=== PATIENT | male | born 1965 | race Caucasian/White ===

== ENCOUNTER 2019-10-20 14:38 | Inpatient (IN) | payer MEDICAID, SELFPAY ==
[2019-10-20] VITALS (19 sets, daily range): BP systolic 114–161; BP diastolic 76–119; PULSE 70–106; RESP 17–29; TEMP 36.3–37.3; O2SAT 60–98; BMI 18.0
--- NOTE | ~2019-10-20 | XR_ITS ---
EXAMINATION: XR chest 2V 10/20/2019 15:35 INDICATION: Shortness of breath. Emphysema. PROCEDURE: 2 view chest COMPARISON: No prior studies for comparison. FINDINGS: The lungs are clear. The lungs are hyperinflated which is consistent with, but not diagnost ic of chronic obstructive pulmonary disease. There is scarring at the lung apices and left lower lobe . The cardiomediastinal silhouette is within normal limits. There are no pleural effusions. There i s no pneumothorax suspected. IMPRESSION: 1: NO ACUTE CARDIOPULMONARY DISEASE. Reviewed, dictated and finalized at location A. [facility] CONTACT SPECIALIST
--- NOTE | 2019-10-20 14:48 | ED.SOB ---
HPI - SOB/Dyspnea General Chief Complaint: Shortness of Breath/Dyspnea Stated Complaint: sob Time Seen by Provider: 10/20/19 14:48 Source: patient and RN notes reviewed Mode of arrival: ambulatory Limitations: no limitations History of Present Illness HPI Narrative: Pt is a 54 y/o male with a Hx of COPD, who presents to the ED with c/o severe SOB starting 3-4 days ago. He notes that he has had chronic intermittent SOB ever since being diagnosed with COPD roughly 5 years ago. Pt states that he has had increased SOB over the past 3-4 days. He notes that he can hardly get out of bed due to him becoming too short of breath. Pt reports rt upper chest pain accompanying his SOB as well as one episode of diarrhea earlier this morning, but denies any cough, fever, chills, or other symptoms. He notes that he uses an inhaler at home, and states that the inhaler slightly alleviates his symptoms. Pt notes that he has been trying to quit smoking, but states that he smoked 1 cigarette this morning. MD elicited complaint: shortness of breath Pertinent past history: COPD Onset (ago): day(s) (3-4) Timing: progressively worsening Severity: severe Exacerbating factors: exertion Relieving factors: other (inhaler) Known history of: COPD Associated symptoms: chest pain (rt upper chest pain) and other (diarrhea) Treatment prior to arrival: other (inhaler) Related Data Home Medications Medication Instructions Recorded Confirmed No Home Medications 10/20/19 10/20/19 Allergies Allergy/AdvReac Type Severity Reaction Status Date / Time No Known Allergies Allergy Mild Unverified 10/20/19 14:44 Review of Systems Review of Systems: All systems reviewed & are unremarkable except as noted in HPI and below Constitutional: Constitutional: Denies chills, Denies fever(s), Denies headache(s) and Denies weakness Cardiovascular: Cardiovascular: Reports chest pain (rt upper chest pain) Respiratory: Respiratory: Reports dyspnea Gastrointestinal: Gastrointestinal: Reports diarrhea Musculoskeletal: Musculoskeletal: Denies back pain and Denies neck pain Neurologic: Denies headache(s) and Denies weakness [facility] Past Medical History Medical History (Updated 10/20/19 @ 21:57 by Karla Bernard MD) COPD (chronic obstructive pulmonary disease) Surgical History Surgical History (Updated 10/20/19 @ 19:36 by Richard Conroy MD) H/O right wrist surgery No significant past surgical history Family History Family History Sibling Acute myocardial infarction Cerebrovascular accident Chronic obstructive pulmonary disease Diabetes mellitus Hypertension Sibling Asthma Cerebrovascular accident Chronic obstructive pulmonary disease Hypertension Sibling Chronic obstructive pulmonary disease Hypertension Sibling Chronic obstructive pulmonary disease Hypertension Sibling Chronic obstructive pulmonary disease Hypertension Mother Congestive heart failure Social History Social History Smoking packs per day: 1 Smoking cigarettes per day: 20.0 Years smoked: 40 Smoking pack-years: 40.00 Smoking status: Current every day smoker Tobacco type: cigarettes Alcohol intake: former Substance use: current Substance use type: marijuana Gender identity (if verbalized by the patient): Male Spiritual care concerns: No Agree to blood products: Yes Exam Const: General: well developed and in distress mild and respiratory Orientation/consciousness: oriented to person, oriented to place, oriented to time and patient oriented x3 HENMT: Head: normocephalic Resp: Effort & Inspection: respiratory distress (mild) and tachypneic Auscultation: clear to auscultation bilaterally and diminished lung sounds Cardio: Rate: tachycardic Rhythm: regular rhythm GI: GI Palp: No abdominal tenderness and Yes Soft to palpation Skin: General
--- NOTE | 2019-10-20 14:52 | ECG_ITS ---
Measurements Intervals [place] Rate: 106 P: 92 WA: 145 QRS: 116 QRSD: 86 T: 65 QT: 330 QTc: 440 Interpretive Statements SINUS TACHYCARDIA ARM LEADS REVERSED BASELINE ARTIFACT- I, II, III, AVR, AVL, AVF, V1-V6 ABNORMAL ECG Electronically Signed On 10-20-2019 18:36:42 INDUSTRIAL ELECTRICIAN by Ash Salcedo D.O.
--- NOTE | 2019-10-20 14:53 | PC.NURSE ---
Placed patient on oxygen 3 Li NC at this time.
[2019-10-20] MEDS: methylPREDNISolone SOD SUCC 125 MG VIAL IV PUSH (14:56)
[2019-10-20] MEDS: IPRATROPIUM BR 0.02% INH SOLN 0.5 MG/2.5 ML VIAL INHALATION ×2 (15:04→20:30)
[2019-10-20] MEDS: ALBUTEROL SULFATE NEB 2.5 MG/0.5 ML INH INHALATION (15:05)
[2019-10-20 15:08] LABS: Basophils Absolute Auto 0.1 K/mm3 (0.0-0.1); Basophils Percent Auto 1.2 % (0.2-1.2); Hematocrit 53.2 % (42.0-52.0); Hemoglobin 16.2 g/dL (14.0-18.0); Immature Granulocyte Absolute 0.02 K/mm3 (0.00-0.031); Immature Granulocyte Percent A 0.3 % (0-0.5); Lymphocytes Percent Auto 18.3 % (18.3-44.2); Mean Corpuscular HGB Conc 30.5 g/dl (32-36); Mean Corpuscular Volume 101.9 fl (80-100); Mean Platelet Volume 10.9 fl (7.4-10.4); Monocytes Absolute Auto 0.6 K/mm3 (0.1-0.6); Monocytes Percent Auto 9.7 % (2.6-8.5); Neutrophils Absolute Auto 4.2 K/mm3 (1.3-6.7); Neutrophils Percent Auto 70.5 % (45.5-73.1); Platelet Count Result 218 k/mm3 (150-375); Red Blood Count 5.22 M/mm3 (4.6-6.20); Red Cell Distribution Width 13.3 % (11.5-14.5)
[2019-10-20 15:20] LABS: Alanine Aminotransferase 49 U/L (4-50); Albumin Level 4.3 g/dL (3.5-5.1); Alkaline Phosphatase 78 U/L (38-126); Aspartate Amino Transferase 42 U/L (17-59); Bilirubin,Total 1.5 mg/dL (0.2-1.3); Blood Urea Nitrogen 15 mg/dL (9-20); Calcium 8.9 mg/dL (8.4-10.2); Carbon Dioxide > 40 mmol/L (22-30); Chloride 89 mmol/L (98-107); Estimated CRCL calculation 97 ml/min; Estimated Glomerular Filt Rate > 60; Glucose 135 mg/dL (75-110); Potassium 4.5 mmol/L (3.4-5.0); Sodium 137 mmol/L (137-145)
[2019-10-20 15:24] LABS: Base Excess ABG 11.9 mEq/l (+/-2.0); Carboxyhemoglobin 5.6 % THb (0-2.0); Fractional Inspired Oxygen 24 %; HCO3 ABG 43.2 mEq/l (22.0-26.0); Methemoglobin ABG 0.3 %THb (0-1.5); Oxygen Content ABG 20.3 %vol (16.0-22.0); Oxygen Saturation ABG 96.4 % (95.0-100.0); Oxyhemoglobin 91.1 % THb (90.0-100.0); PO2 ABG 97.8 mmHg (80.0-100.0); PO2 FiO2 Ratio Arterial Blood 4.08 %; Total Hemoglobin 15.8 g/dL (12.0-18.0); pH ABG 7.299 (7.350-7.450)
[2019-10-20 15:27] LABS: Device NASAL CANNULA; Modified Allen's Test Pass; Site Drawn RIGHT RADIAL
[2019-10-20 15:32] LABS: NT Pro B Type Natriuretic Pept 1120 PG/ML (5-100); Troponin I < 0.012 ng/mL (0.000-0.034)
--- NOTE | 2019-10-20 18:01 | PC.NURSE ---
This patient, Richard Simon, was admitted to IMU Room 212-01. Patient/family oriented to hospital policies and general routines including ID bracelet, bed and alarms, visiting hours, pain management, procedures, bathroom and other care routines, personal items, smoking policy, room service/diet, and visiting hours. Valuables list has been completed. Information on how to activate the Rapid Response Team has been discussed. Patient/Family are encouraged to report perceived risks to care and to ask questions if they do not understand what they are told or what they should do.
--- NOTE | 2019-10-20 19:32 | PM.IMHP ---
H&P: HPI History of Present Illness Chief complaint: acute respiratory failure/copd exacerbation Narrative: This is a pleasant 54-year-old male with known history of chronic COPD who is known to normally smoke about 2 packs of cigarettes daily for the past 40 years and who is from [facility] here visiting for work. The patient presented to the hospital [facility] with severe shortness of breath. Over the past 2 weeks the patient has had worsening exertional shortness of breath, wheezing, ongoing productive cough of yellowish sputum which has not changed recently, and generalized fatigue. He ran out of his inhalers about 2 weeks ago and has not been able to get them refilled. He is not on any home oxygen. 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 He noticed that he had severe shortness of breath with minimal exertion. The patient does not have any previous history of heart disease and denies any recent peripheral swelling. He does complain of right-sided chest discomfort which has been ongoing for many days now. He denies any recent fevers or chills, nausea or vomiting, abdominal pain, dysuria, hematuria, or rectal bleeding. He has had a few episodes of diarrhea recently. He denies any recent use of antibiotics. Denies any sick contacts. Patient was evaluated emergency room today and found to be in acute hypercapnic respiratory failure. Patient was promptly initiated on BiPAP and admitted to the hospital for further care. He denies any other symptoms at this time. Review of Systems Review of Systems: All systems reviewed & are unremarkable except as noted in HPI and below PMFSH Past Medical History Medical History (Updated 10/20/19 @ 21:57 by Karla Bernard MD) COPD (chronic obstructive pulmonary disease) Surgical History Surgical History (Updated 10/20/19 @ 19:36 by Richard Conroy MD) H/O right wrist surgery No significant past surgical history Family History Family History Sibling Acute myocardial infarction Cerebrovascular accident Chronic obstructive pulmonary disease Diabetes mellitus Hypertension Sibling Asthma Cerebrovascular accident Chronic obstructive pulmonary disease Hypertension Sibling Chronic obstructive pulmonary disease Hypertension Sibling Chronic obstructive pulmonary disease Hypertension Sibling Chronic obstructive pulmonary disease Hypertension Mother Congestive heart failure Social History Social History Smoking packs per day: 1 Smoking cigarettes per day: 20.0 Years smoked: 40 Smoking pack-years: 40.00 Smoking status: Current every day smoker Tobacco type: cigarettes Alcohol intake: former Substance use: current Substance use type: marijuana Gender identity (if verbalized by the patient): Male Spiritual care concerns: No Agree to blood products: Yes Meds Home Medications and Allergies Home Medications Medication Instructions Recorded Confirmed Type No Home Medications 10/20/19 10/20/19 History Allergies Allergy/AdvReac Type Severity Reaction Status Date / Time No Known Allergies Allergy Mild Unverified 10/20/19 14:44 Vital Signs Vital Signs - 24 hr 10/20/19 14:45 10/20/19 14:48 10/20/19 15:02 Temperature 37.3 C Pulse Rate 106 H 105 H 85 Respiratory Rate 25 H 17 Blood Pressure 155/111 H 161/96 H Pulse Oximetry 60 L 90 10/20/19 15:05 10/20/19 15:30 10/20/19 15:43 Temperature Pulse Rate 88 80 77 Respiratory Rate 20 18 18 Blood Pressure 140/119 H Pulse Oximetry 95 10/20/19 16:10 10/20/19 16:31 10/20/19 17:10 Temperature Pulse Rate 84 78 82 Respiratory Rate 25 H 18 28 H Blood Pressure 138/98 H 131/88 Pulse Oximetry 94 94 93 10/20/19 17:42 Temperature 36.9 C Pulse Rate 84 Respiratory Rate 19 Blood Pressure 156/91 H Pulse Oximetry 98 Exam Const: Genera
[2019-10-20 19:37] LABS: Troponin I 0.012 ng/mL (0.000-0.034)
[2019-10-20] MEDS: ALBUTEROL SULFATE NEB 2.5 MG/0.5 ML INH 5 MG INHALATION (20:30)
[2019-10-20] MEDS: SODIUM CHLORIDE 0.9% IV 1,000 ML 100 ML IV CONT (20:39)
[2019-10-20 20:58] LABS: Alveolar/Arterial O2 Gradient 138.9 mmHg; Base Excess ABG 0.6 mEq/l (+/-2.0); Fractional Inspired Oxygen 40 %; HCO3 ABG 26.7 mEq/l (22.0-26.0); Oxygen Content ABG 15.9 %vol (16.0-22.0); Oxygen Saturation ABG 96.5 % (95.0-100.0); Oxyhemoglobin 93.6 % THb (90.0-100.0); PO2 FiO2 Ratio Arterial Blood 2.25 %; pH ABG 7.354 (7.350-7.450)
[2019-10-20 20:59] LABS: Device NON-INVASIVE VENT; Modified Allen's Test Pass; Site Drawn RIGHT RADIAL
[2019-10-20 21:00] LABS: Non-Invasive Expiratory Pressure 7 CMH2O; Non-Invasive Inspiratory Pressure 14 CMH2O; Non-Invasive Vent Rate 10 /MIN
[2019-10-20 22:34] LABS: Troponin I < 0.012 ng/mL (0.000-0.034)
[2019-10-20] MEDS: methylPREDNISolone SOD SUCC 125 MG VIAL 60 MG IV PUSH (23:36)
[2019-10-21] VITALS (17 sets, daily range): BP systolic 111–150; BP diastolic 73–92; PULSE 69–96; RESP 17–20; TEMP 36.1–37; O2SAT 91–96
[2019-10-21] MEDS: NICOTINE (*PBKC) 21 MG PATCH 1 PATCH TRANSDERM ×2 (00:03→09:04)
[2019-10-21] MEDS: IPRATROPIUM BR 0.02% INH SOLN 0.5 MG/2.5 ML VIAL INHALATION ×4 (01:41→20:33)
[2019-10-21] MEDS: ALBUTEROL SULFATE NEB 2.5 MG/0.5 ML INH 5 MG INHALATION ×4 (01:41→20:33)
[2019-10-21 04:39] LABS: Hematocrit 47.6 % (42.0-52.0); Hemoglobin 14.6 g/dL (14.0-18.0); Immature Granulocyte Absolute 0.02 K/mm3 (0.00-0.031); Immature Granulocyte Percent A 0.5 % (0-0.5); Lymphocytes Absolute Auto 0.28 K/mm3 (0.9-3.2); Lymphocytes Percent Auto 6.7 % (18.3-44.2); Mean Corpuscular HGB Conc 30.7 g/dl (32-36); Mean Corpuscular Hemoglobin 30.5 pg (26-34); Mean Corpuscular Volume 99.4 fl (80-100); Neutrophils Absolute Auto 3.8 K/mm3 (1.3-6.7); Neutrophils Percent Auto 91.8 % (45.5-73.1); Platelet Count Result 199 k/mm3 (150-375); Red Blood Count 4.79 M/mm3 (4.6-6.20); Red Cell Distribution Width 13.1 % (11.5-14.5); White Blood Count 4.2 K/mm3 (4.5-10.0)
[2019-10-21 04:59] LABS: Blood Urea Nitrogen 14 mg/dL (9-20); Calcium 8.7 mg/dL (8.4-10.2); Carbon Dioxide 38 mmol/L (22-30); Chloride 93 mmol/L (98-107); Estimated CRCL calculation 111 ml/min; Estimated Glomerular Filt Rate > 60; Glucose 138 mg/dL (75-110); Magnesium 1.8 mg/dL (1.6-2.3); Potassium 4.6 mmol/L (3.4-5.0); Sodium 137 mmol/L (137-145)
[2019-10-21] MEDS: methylPREDNISolone SOD SUCC 125 MG VIAL 60 MG IV PUSH ×4 (06:06→23:59)
[2019-10-21] MEDS: SODIUM CHLORIDE 0.9% IV 1,000 ML 100 ML IV CONT (06:07)
[2019-10-21] MEDS: ACETAMINOPHEN 325 MG TABLET 650 MG PO ×4 (06:09→22:50)
--- NOTE | 2019-10-21 13:46 | PM.IMPN ---
Progress Note: A&P Assessment and Plan (1) Acute hypercapnic respiratory failure: Code(s): J96.02 - Acute respiratory failure with hypercapnia Status: Acute Assessment and Plan: Appears to be secondary to COPD exacerbation. Continue treatment for COPD exacerbation.Continue breathing treatments and iv steroids and oxygen at 3 liters (2) Acute exacerbation of chronic obstructive pulmonary disease (COPD): Code(s): J44.1 - Chronic obstructive pulmonary disease with (acute) exacerbation Status: Acute Assessment and Plan: Continue bronchodilators scheduled and Solu-Medrol. Continue oxygen supplementation as needed to maintain pulse ox greater than 94%. Adviced to quit smoking (3) Hyperbilirubinemia: Code(s): E80.6 - Other disorders of bilirubin metabolism Status: Acute Assessment and Plan: Acute versus chronic. continue to monitor (4) Tobacco dependence: Code(s): F17.200 - Nicotine dependence, unspecified, uncomplicated Status: Chronic Assessment and Plan: Adviced to quit smoking, given a nicotine patch. Subjective Date/time seen: 10/21/19 13:46 Interval history: This is a pleasant 54-year-old male with known history of chronic COPD who is known to normally smoke about 2 packs of cigarettes daily for the past 40 years and who is from [facility] here visiting for work. The patient presented to the [facility] with severe shortness of breath. Pt has not been taking his inhaler, not seen doctors for few years. Pt was on bipap yesterday off now, stable on 3 liters of oxygen. Review of Systems Review of Systems: All systems reviewed & are unremarkable except as noted in HPI and below Respiratory: Respiratory: Reports chest congestion, Reports cough, Reports dyspnea, Reports dyspnea on exertion and Reports wheezing Exam Const: General: cooperative Nutritional Appearance: thin and underweight Orientation/consciousness: patient oriented x3 Other: on oxygen 3 liters Neck: Neck: supple and no JVD Thyroid: thyroid normal Lymphatic: lymphadenopathy not noted Resp: Auscultation: wheezes and diminished lung sounds Cardio: Rate: tachycardic Rhythm: regular rhythm Heart sounds: no murmurs GI: Inspection: normal to inspection Auscultation: normal bowel sounds Skin: General skin exam: normal color and no rashes or lesions noted Neuro: General: patient oriented x3 Cranial nerves: Yes CN's II-XII intact bilaterally and Yes Equal, round and reactive pupils present Speech: normal speech Motor exam (neuro): 5/5 motor strength present throughout Sensory Exam: normal sensation Extrem: General: normal to inspection and no edema Psych: Mental Status: mental status grossly normal Affect: normal affect Objective Data Vital Signs Vital Signs: Vital Signs - 24 hr 10/20/19 14:45 10/20/19 14:48 10/20/19 15:02 Temperature 37.3 C Pulse Rate 106 H 105 H 85 Respiratory Rate 25 H 17 Blood Pressure 155/111 H 161/96 H Pulse Oximetry 60 L 90 10/20/19 15:05 10/20/19 15:30 10/20/19 15:43 Temperature Pulse Rate 88 80 77 Respiratory Rate 20 18 18 Blood Pressure 140/119 H Pulse Oximetry 95 10/20/19 16:10 10/20/19 16:31 10/20/19 17:10 Temperature Pulse Rate 84 78 82 Respiratory Rate 25 H 18 28 H Blood Pressure 138/98 H 131/88 Pulse Oximetry 94 94 93 10/20/19 17:42 10/20/19 18:00 10/20/19 19:39 Temperature 36.9 C 37.1 C Pulse Rate 84 84 83 Respiratory Rate 19 20 Blood Pressure 156/91 H 131/94 H Pulse Oximetry 98 90 10/20/19 20:00 10/20/19 20:31 10/20/19 20:32 Temperature Pulse Rate 90 85 85 Respiratory Rate 29 H 29 H Blood Pressure Pulse Oximetry 94 10/20/19 20:40 10/20/19 22:00 10/20/19 23:49 Temperature 36.3 C L Pulse Rate 87 77 70 Respiratory Rate 23 H 28 H Blood Pressure 114/76 Pulse Oximetry 96 10/20/19 23:59 10/21/19 00:00 10/21/19 01:42 Temperature Puls
--- NOTE | 2019-10-21 17:40 | PC.NURSE ---
This patient, Richard Simon, was transferred to [ [id number]] on 10/21/19 at 1741. Personal belongings sent with patient. Belongings list checked. Report given to [ Zain SAMUEL]. Appropriate documentation sent with patient.
--- NOTE | 2019-10-21 17:50 | PC.NURSE ---
This patient, Richard Smion, was received from IMU on 10/21/19 at 1750. Personal belongings list checked and signed. Patient/family oriented to unit policies and routines
[2019-10-22] VITALS (16 sets, daily range): BP systolic 111–121; BP diastolic 67–76; PULSE 69–106; RESP 16–20; TEMP 36.1–36.8; O2SAT 92–94; BMI 18.3
--- NOTE | 2019-10-22 | ECHO_ITS ---
Patient Info Name: Richard Simon Age: 54 years : 1965 Gender: Male Ht: 70 in Wt: 128 lbs BSA: 1.68 m2 HR: 90 bpm BP: 111 / 75 mmHg Heart Rhythm: Sinus Rhythm Technical Quality: Good Exam Date: 10/22/2019 11:46 AM Exam Location: [facility] Patient Status: Inpatient Admit Date: 10/20/2019 Staff Ordering Physician: Jenny Prince MD Country Printer Apprentice: Eris Newberry RDCS Attending Provider: Jenny Prince MD Referring Physician: Niki CARNEY; Exam Type: CA echo doppler color flow Study Info Indications J96.01 - Acute respiratory failure with hypoxia Complete two-dimensional, color flow and Doppler transthoracic echocardiogram is performed. Strain analysis performed. History/Risk Factors Acute respiratory failure; COPD exacerbation; SOB, BNP 1120. Summary 1. Left ventricular chamber dimension is normal. 2. Left ventricular systolic function is normal, estimated at 55-60%. 3. The left ventricular diastolic function is normal. 4. E/e' 5 is not elevated. 5. Global longitudinal strain is normal at -20.3%. 6. There is mild aortic valve sclerosis. 7. There is mild tricuspid valve regurgitation. 8. Mild pulmonary hypertension, estimated pulmonary arterial systolic pressure is 40 mmHg. Left Ventricle E/e' 5 is not elevated. Global longitudinal strain is normal at -20.3%. Left ventricular chamber dimension is normal. Left ventricular systolic function is normal, estimated at 55-60%. The left ventricular diastolic function is normal. Right Ventricle Right ventricular chamber dimension is normal. Right ventricular systolic function is normal. Left Atria Left atrial chamber dimension is normal. Right Atria Right atrial chamber dimension is normal. Aortic Valve The aortic valve is trileaflet. There is mild aortic valve sclerosis. There is no aortic valve stenosis. There is no aortic valve regurgitation. Pulmonic Valve There is no pulmonic regurgitation. Mitral Valve There is no mitral valve stenosis. There is no mitral valve regurgitation. Tricuspid Valve There is mild tricuspid valve regurgitation. Mild pulmonary hypertension, estimated pulmonary arterial systolic pressure is 40 mmHg. Pericardium/Pleural There is no pericardial effusion. Inferior Vena Cava Normal inferior vena cava with >50% collapse upon inspiration consistent with normal right atrial pressure, 5 mmHg. Aorta The aortic root size at the sinus of Valsalva is normal. Left Ventricular Outflow Tract Name Value Normal LVOT 2D LVOT Diameter 2.2 cm LVOT Doppler LVOT Peak Gradient 8 mmHg LVOT Mean Gradient 4 mmHg LVOT VTI 25 cm LVOT VTI/AV VTI Ratio 0.8 LVOT Stroke Volume 93 ml LVOT CO 8.0 l/min LVOT CI 4.8 l/min/m2 Mitral Valve Name Value Norm
[2019-10-22] MEDS: IPRATROPIUM BR 0.02% INH SOLN 0.5 MG/2.5 ML VIAL INHALATION ×4 (01:50→21:25)
[2019-10-22] MEDS: ALBUTEROL SULFATE NEB 2.5 MG/0.5 ML INH 5 MG INHALATION ×4 (01:50→21:24)
[2019-10-22] MEDS: ACETAMINOPHEN 325 MG TABLET 650 MG PO ×4 (04:44→20:55)
[2019-10-22] MEDS: methylPREDNISolone SOD SUCC 125 MG VIAL 60 MG IV PUSH ×4 (05:59→23:56)
[2019-10-22] MEDS: NICOTINE (*PBKC) 21 MG PATCH 1 PATCH TRANSDERM (08:25)
[2019-10-22] MEDS: BUDESONIDE RESPULE NEB 0.5 MG/2 ML AMP INHALATION ×2 (10:58→21:24)
--- NOTE | 2019-10-22 14:41 | PM.IMPN ---
Progress Note: A&P Assessment and Plan (1) Acute hypercapnic respiratory failure: Code(s): J96.02 - Acute respiratory failure with hypercapnia Status: Acute Assessment and Plan: This is a pleasant 54-year-old male with known history of chronic COPD who is known to normally smoke about 2 packs of cigarettes daily for the past 40 years and who is from [facility] here visiting for work. The patient presented to the hospital 10/20 with severe shortness of breath, Pt has not been taking his inhaler, has not seen doctors for few years. he was placed on BIPAP, started on Solu-Medrol updraft and oxygen, symptoms have improved is not requiring as much oxygen he is now is on 2 L per nasal cannula, patient also started on doxycycline to cover for atypicals as well as Pulmicort, patient's symptoms are improving will continue to monitor, patient denies any chest pain shortness of breath palpitation fever or chills (2) Acute exacerbation of chronic obstructive pulmonary disease (COPD): Code(s): J44.1 - Chronic obstructive pulmonary disease with (acute) exacerbation Status: Acute Assessment and Plan: Continue bronchodilators scheduled and Solu-Medrol. Continue oxygen supplementation as needed to maintain pulse ox greater than 94%. Adviced to quit smoking (3) Hyperbilirubinemia: Code(s): E80.6 - Other disorders of bilirubin metabolism Status: Acute Assessment and Plan: Acute versus chronic. continue to monitor (4) Tobacco dependence: Code(s): F17.200 - Nicotine dependence, unspecified, uncomplicated Status: Chronic Assessment and Plan: Adviced to quit smoking, given a nicotine patch. Subjective Date/time seen: 10/22/19 14:41 Interval history: This is a pleasant 54-year-old male with known history of chronic COPD who is known to normally smoke about 2 packs of cigarettes daily for the past 40 years and who is from [facility] here visiting for work. The patient presented to the [facility] with severe shortness of breath 10/20 Pt has not been taking his inhaler, has not seen doctors for few years. he was placed on BIPAP, started on Solu-Medrol updraft and oxygen, symptoms have improved is not requiring as much oxygen he is now is on 2 L per nasal cannula, patient also started on doxycycline to cover for atypicals as well as Pulmicort, patient's symptoms are improving will continue to monitor, patient denies any chest pain shortness of breath palpitation fever or chills Review of Systems Review of Systems: All systems reviewed & are unremarkable except as noted in HPI and below Exam Narrative: Exam Narrative: Patient appears chronically ill older than his age Const: General: comfortable and no acute distress HENMT: General nose exam: Normal nares present Mouth: Yes moist mucous membranes Eyes: General: appearance normal, both eyes and all related structures Sclera: sclerae normal Neck: Neck: supple Resp: Other: Bilateral poor air entry with rhonchi and wheezing Cardio: Rate: regular rate Rhythm: regular rhythm GI: Auscultation: normal bowel sounds Skin: General skin exam: normal color and no rashes or lesions noted Neuro: Speech: normal speech Sensory Exam: normal sensation Extrem: General: normal to inspection Psych: Affect: Anxious affect present Objective Data Vital Signs Vital Signs: Vital Signs - 24 hr 10/21/19 16:00 10/21/19 20:34 10/21/19 21:21 Temperature 98.6 F Pulse Rate 86 71 74 Respiratory Rate 18 18 18 Blood Pressure 131/76 Pulse Oximetry 91 10/21/19 22:00 10/22/19 01:50 10/22/19 01:51 Temperature 97.4 F L Pulse Rate 85 69 Respiratory Rate 20 18 Blood Pressure 111/73 Pulse Oximetry 94 93 10/22/19 02:01 10/22/19 06:00 10/22/19 08:07 Temperature 97.0 F L Pulse Rate 77 82 88 Respiratory Rate 18 16 20 Blood Pressure 111/75 Pulse Oximetry 94 93 10/22/19 08
[2019-10-22] MEDS: MELATONIN 3 MG TABLET PO (20:56)
[2019-10-23] VITALS (14 sets, daily range): BP systolic 115–150; BP diastolic 69–88; PULSE 81–100; RESP 16–20; TEMP 36.7–37.3; O2SAT 90–95
[2019-10-23] MEDS: IPRATROPIUM BR 0.02% INH SOLN 0.5 MG/2.5 ML VIAL INHALATION ×4 (02:25→19:36)
[2019-10-23] MEDS: ALBUTEROL SULFATE NEB 2.5 MG/0.5 ML INH 5 MG INHALATION ×4 (02:26→19:36)
[2019-10-23 05:43] LABS: Hematocrit 44.4 % (42.0-52.0); Hemoglobin 13.8 g/dL (14.0-18.0); Mean Corpuscular HGB Conc 31.1 g/dl (32-36); Mean Corpuscular Hemoglobin 30.7 pg (26-34); Mean Corpuscular Volume 98.7 fl (80-100); Mean Platelet Volume 10.9 fl (7.4-10.4); Platelet Count Result 204 k/mm3 (150-375); Red Cell Distribution Width 13.1 % (11.5-14.5); White Blood Count 9.6 K/mm3 (4.5-10.0)
[2019-10-23 06:01] LABS: Blood Urea Nitrogen 20 mg/dL (9-20); Calcium 8.7 mg/dL (8.4-10.2); Carbon Dioxide 39 mmol/L (22-30); Chloride 92 mmol/L (98-107); Estimated CRCL calculation 96 ml/min; Estimated Glomerular Filt Rate > 60; Glucose 213 mg/dL (75-110); Potassium 4.1 mmol/L (3.4-5.0); Sodium 138 mmol/L (137-145)
[2019-10-23] MEDS: methylPREDNISolone SOD SUCC 125 MG VIAL 60 MG IV PUSH ×2 (06:02→11:24)
[2019-10-23] MEDS: NICOTINE (*PBKC) 21 MG PATCH 1 PATCH TRANSDERM (07:47)
[2019-10-23] MEDS: ACETAMINOPHEN 325 MG TABLET 650 MG PO ×3 (07:58→20:39)
[2019-10-23] MEDS: BUDESONIDE RESPULE NEB 0.5 MG/2 ML AMP INHALATION ×2 (08:08→19:36)
--- NOTE | 2019-10-23 16:13 | PM.IMPN ---
Progress Note: A&P Assessment and Plan (1) Acute hypercapnic respiratory failure: Code(s): J96.02 - Acute respiratory failure with hypercapnia Status: Acute Assessment and Plan: 10/23/19 16:13 This is a pleasant 54-year-old male with known history of chronic COPD who is known to normally smoke about 2 packs of cigarettes daily for the past 40 years and who is from [facility] here visiting for work. The patient presented to the [facility] with severe shortness of breath 2/1 Pt has not been taking his inhaler, has not seen doctors for few years. he was placed on BIPAP, started on Solu-Medrol updraft and oxygen, symptoms have improved is not requiring as much oxygen he is now is on 2 L per nasal cannula, patient also started on doxycycline to cover for atypicals as well as Pulmicort, he stats doing better, he was able to take his O2 off for litte while and felt okay, patient's symptoms are improving will continue to monitor and taper is steroid, , patient denies any chest pain shortness of breath palpitation fever or chills, (2) Acute exacerbation of chronic obstructive pulmonary disease (COPD): Code(s): J44.1 - Chronic obstructive pulmonary disease with (acute) exacerbation Status: Acute Assessment and Plan: Continue bronchodilators scheduled and Solu-Medrol. Continue oxygen supplementation as needed to maintain pulse ox greater than 94%. Adviced to quit smoking (3) Hyperbilirubinemia: Code(s): E80.6 - Other disorders of bilirubin metabolism Status: Acute Assessment and Plan: Acute versus chronic. continue to monitor (4) Tobacco dependence: Code(s): F17.200 - Nicotine dependence, unspecified, uncomplicated Status: Chronic Assessment and Plan: Adviced to quit smoking, given a nicotine patch. Subjective Date/time seen: 10/23/19 16:13 This is a pleasant 54-year-old male with known history of chronic COPD who is known to normally smoke about 2 packs of cigarettes daily for the past 40 years and who is from [facility] here visiting for work. The patient presented to the [facility] with severe shortness of breath 2/1 Pt has not been taking his inhaler, has not seen doctors for few years. he was placed on BIPAP, started on Solu-Medrol updraft and oxygen, symptoms have improved is not requiring as much oxygen he is now is on 2 L per nasal cannula, patient also started on doxycycline to cover for atypicals as well as Pulmicort, he stats doing better, he was able to take his O2 off for litte while and felt okay, patient's symptoms are improving will continue to monitor and taper is steroid, , patient denies any chest pain shortness of breath palpitation fever or chills, Interval history: Review of Systems Review of Systems: All systems reviewed & are unremarkable except as noted in HPI and below Exam Narrative: Exam Narrative: Patient appears chronically ill older than his age Const: General: comfortable and no acute distress HENMT: General nose exam: Normal nares present Mouth: Yes moist mucous membranes Eyes: General: appearance normal, both eyes and all related structures Neck: Neck: supple Resp: Effort & Inspection: normal respiratory effort Auscultation: clear to auscultation bilaterally Cardio: Rate: regular rate Rhythm: regular rhythm GI: Auscultation: normal bowel sounds Skin: General skin exam: normal color and no rashes or lesions noted Neuro: Speech: normal speech Sensory Exam: normal sensation Extrem: General: normal to inspection Psych: Affect: Anxious affect present Objective Data Vital Signs Vital Signs: Vital Signs - 24 hr 10/22/19 21:25 10/22/19 21:30 10/22/19 21:33 Temperature Pulse Rate 92 85 Respiratory Rate 20 20 Blood Pressure Pulse Oximetry 92 10/22/19 22:00 10/23/19 02:27 10/23/19 02:42 Temperature 98.3 F Pulse Rate 87 81 83 Respiratory Rate
[2019-10-23] MEDS: DOCUSATE SODIUM 100 MG CAPSULE PO (16:48)
[2019-10-23] MEDS: MELATONIN 3 MG TABLET PO (20:40)
[2019-10-24] VITALS (21 sets, daily range): BP systolic 146–152; BP diastolic 83–92; PULSE 83–120; RESP 16–20; TEMP 36.3–37.2; O2SAT 80–96
[2019-10-24] MEDS: ALBUTEROL SULFATE NEB 2.5 MG/0.5 ML INH 5 MG INHALATION ×4 (01:31→20:40)
[2019-10-24] MEDS: IPRATROPIUM BR 0.02% INH SOLN 0.5 MG/2.5 ML VIAL INHALATION ×4 (01:31→20:41)
[2019-10-24 05:52] LABS: Hematocrit 45.5 % (42.0-52.0); Hemoglobin 14.3 g/dL (14.0-18.0); Mean Corpuscular HGB Conc 31.4 g/dl (32-36); Mean Corpuscular Hemoglobin 30.6 pg (26-34); Mean Corpuscular Volume 97.4 fl (80-100); Mean Platelet Volume 10.6 fl (7.4-10.4); Platelet Count Result 212 k/mm3 (150-375); Red Blood Count 4.67 M/mm3 (4.6-6.20); Red Cell Distribution Width 13.2 % (11.5-14.5); White Blood Count 9.2 K/mm3 (4.5-10.0)
[2019-10-24 06:16] LABS: Blood Urea Nitrogen 21 mg/dL (9-20); Calcium 8.6 mg/dL (8.4-10.2); Carbon Dioxide 36 mmol/L (22-30); Chloride 95 mmol/L (98-107); Estimated CRCL calculation 83 ml/min; Estimated Glomerular Filt Rate > 60; Glucose 99 mg/dL (75-110); Potassium 3.9 mmol/L (3.4-5.0); Sodium 137 mmol/L (137-145)
[2019-10-24] MEDS: NICOTINE (*PBKC) 21 MG PATCH 1 PATCH TRANSDERM (07:49)
[2019-10-24] MEDS: predniSONE 20 MG TABLET 60 MG PO (07:49)
[2019-10-24] MEDS: BUDESONIDE RESPULE NEB 0.5 MG/2 ML AMP INHALATION ×2 (08:30→20:40)
--- NOTE | 2019-10-24 11:32 | HOMEO2EVAL ---
Home Oxygen Evaluation RC: Home Oxygen (O2) Evaluation Start: 10/24/19 08:28 Freq: ONCE Status: Active Protocol: RPE Activity Type Activity Date Activity User E-Sign Co-Sign Detail Recorded Client Recorded Date Recorded By Document 10/24/19 09:50 [email or web address] [email or web address] 10/24/19 11:31 DJO Document 10/24/19 09:55 [email or web address] [email or web address] 10/24/19 11:31 DJO Document 10/24/19 10:00 [email or web address] [email or web address] 10/24/19 11:31 DJO Document 10/24/19 10:05 [email or web address] [email or web address] 10/24/19 11:31 DJO Document 10/24/19 10:10 [email or web address] [email or web address] 10/24/19 11:31 DJO Document 10/24/19 10:15 [email or web address] [email or web address] 10/24/19 11:31 DJO Document 10/24/19 10:30 [email or web address] [email or web address] 10/24/19 11:31 DJO 10/24/19 10/24/19 10/24/19 09:50 09:55 10:00 Home O2 Evaluation Test Phase Resting Resting Resting Oxygen Delivery Room Air Nasal Cannula Nasal Cannula Oxygen Flow Rate (L/min) 1 2 Pulse Oximetry (90-100 %) 84 L 86 L 90 Pulse Rate (60-100 beats/min) 106 H 104 H 100 Rating of Perceived Dyspnea (PD) Ambulation Distance (feet) Treatment Charges O2 Evaluation 10/24/19 10/24/19 10/24/19 10:05 10:10 10:15 Home O2 Evaluation Test Phase Exercise Exercise Exercise Oxygen Delivery Nasal Cannula Nasal Cannula Nasal Cannula Oxygen Flow Rate (L/min) 2 3 4 Pulse Oximetry (90-100 %) 86 L 87 L 90 Pulse Rate (60-100 beats/min) 114 H 118 H 120 H Rating of Perceived Dyspnea (PD) +2 Mild, Some Difficulty, Noticeable to the Observer Ambulation Distance (feet) 900 Treatment Charges 10/24/19 10:30 Home O2 Evaluation Test Phase Resting Oxygen Delivery Nasal Cannula Oxygen Flow Rate (L/min) 2 Pulse Oximetry (90-100 %) 91 Pulse Rate (60-100 beats/min) 99 Rating of Perceived Dyspnea (PD) Ambulation Distance (feet) Treatment Charges
--- NOTE | 2019-10-24 12:18 | PM.IMPN ---
Progress Note: A&P Assessment and Plan (1) Acute hypercapnic respiratory failure: Code(s): J96.02 - Acute respiratory failure with hypercapnia Status: Acute Assessment and Plan: 10/23/19 16:13 This is a pleasant 54-year-old male with known history of chronic COPD who is known to normally smoke about 2 packs of cigarettes daily for the past 40 years and who is from [facility] here visiting for work. The patient presented to the [facility] with severe shortness of breath 2/1 Pt has not been taking his inhaler, has not seen doctors for few years. he was placed on BIPAP, started on Solu-Medrol updraft and oxygen, symptoms have improved is not requiring as much oxygen he is now is on 2 L per nasal cannula, patient also started on doxycycline to cover for atypicals as well as Pulmicort, he stats doing better, he was able to take his O2 off for litte while and felt okay, patient's symptoms are improving will continue to monitor and taper is steroid, , patient denies any chest pain shortness of breath palpitation fever or chills, (2) Acute exacerbation of chronic obstructive pulmonary disease (COPD): Code(s): J44.1 - Chronic obstructive pulmonary disease with (acute) exacerbation Status: Acute Assessment and Plan: Continue bronchodilators scheduled and Solu-Medrol. Continue oxygen supplementation as needed to maintain pulse ox greater than 94%. Adviced to quit smoking, plan is above (3) Hyperbilirubinemia: Code(s): E80.6 - Other disorders of bilirubin metabolism Status: Acute Assessment and Plan: Acute versus chronic. continue to monitor (4) Tobacco dependence: Code(s): F17.200 - Nicotine dependence, unspecified, uncomplicated Status: Chronic Assessment and Plan: Adviced to quit smoking, given a nicotine patch. Subjective Date/time seen: 10/24/19 12:18 This is a pleasant 54-year-old male with known history of chronic COPD who is known to normally smoke about 2 packs of cigarettes daily for the past 40 years and who is from [facility] here visiting for work. The patient presented to the [facility] with severe shortness of breath 2/1 Pt has not been taking his inhaler, has not seen doctors for few years. he was placed on BIPAP, started on Solu-Medrol updraft and oxygen, symptoms have improved is not requiring as much oxygen he is now is on 2 L per nasal cannula, patient also started on doxycycline to cover for atypicals as well as Pulmicort, he stats doing better, he was able to take his O2 off for little while and felt okay, patient's symptoms were improving continued to monitor and tapered issteroid to prednisone on 10/23, today patient had home O2 evaluation he is reiuring 2 L at rest and 4 L with exertion, at patient is not on oxygen, will CPM and reasess tomorrow, patient denies any chest pain shortness of breath palpitation fever or chills, Review of Systems Review of Systems: All systems reviewed & are unremarkable except as noted in HPI and below Exam Narrative: Exam Narrative: Patient appears chronically ill older than his age Const: General: cooperative, comfortable and no acute distress Nutritional Appearance: thin and underweight Orientation/consciousness: patient oriented x3 Other: on oxygen 3 liters HENMT: Head: normal to inspection General nose exam: Normal external nose present and Normal nares present Face and sinus: normal facial exam Mouth: Yes Normal oral and palatal mucosa present, Yes oropharynx normal and Yes moist mucous membranes Eyes: General: appearance normal, both eyes and all related structures Sclera: sclerae normal Pupils: Equal, round and reactive pupils present EOM: EOMs intact bilaterally Neck: Neck: supple and no JVD Thyroid: thyroid normal Lymphatic: lymphadenopathy not noted Resp: Effort & Inspection: normal respiratory effort and tachypneic Auscultation: clear to auscultation
--- NOTE | 2019-10-24 13:57 | PCRCNOTE ---
HOME O2 EVAL COMPLETE, 2L AT REST AND 4L WITH ACTIVITY. NOT SET UP WITH HOME COMPANY YET. PT. IS SELF PAY AND NOT DISCHARGING FOR A DAY OR 2 AND HE WANTS TO WAIT AND SEE IF HE WILL STILL NEED IT. PT. IS AWARE OF PRICING FOR SELF PAY FROM [facility] PATIENT
[2019-10-24] MEDS: MELATONIN 3 MG TABLET PO (21:12)
[2019-10-25] VITALS (14 sets, daily range): BP systolic 141; BP diastolic 91; PULSE 81–123; RESP 18–24; TEMP 37.2; O2SAT 84–93
[2019-10-25] MEDS: ALBUTEROL SULFATE NEB 2.5 MG/0.5 ML INH 5 MG INHALATION ×3 (02:41→13:59)
[2019-10-25] MEDS: IPRATROPIUM BR 0.02% INH SOLN 0.5 MG/2.5 ML VIAL INHALATION ×3 (02:41→13:59)
[2019-10-25 06:36] LABS: Hemoglobin 14.3 g/dL (14.0-18.0); Mean Corpuscular HGB Conc 30.4 g/dl (32-36); Mean Corpuscular Hemoglobin 30.2 pg (26-34); Mean Corpuscular Volume 99.4 fl (80-100); Platelet Count Result 191 k/mm3 (150-375); Red Blood Count 4.73 M/mm3 (4.6-6.20); Red Cell Distribution Width 13.7 % (11.5-14.5)
[2019-10-25 06:48] LABS: Blood Urea Nitrogen 20 mg/dL (9-20); Calcium 8.7 mg/dL (8.4-10.2); Carbon Dioxide 38 mmol/L (22-30); Chloride 90 mmol/L (98-107); Estimated CRCL calculation 96 ml/min; Estimated Glomerular Filt Rate > 60; Glucose 102 mg/dL (75-110); Potassium 3.4 mmol/L (3.4-5.0); Sodium 135 mmol/L (137-145)
[2019-10-25] MEDS: BUDESONIDE RESPULE NEB 0.5 MG/2 ML AMP INHALATION (07:43)
[2019-10-25] MEDS: predniSONE 20 MG TABLET 60 MG PO (07:44)
[2019-10-25] MEDS: NICOTINE (*PBKC) 21 MG PATCH 1 PATCH TRANSDERM (07:44)
[2019-10-25] MEDS: POTASSIUM CHLORIDE 20 MEQ PACKET (FOR LIQUID) 40 MEQ PO (09:16)
--- NOTE | 2019-10-25 10:54 | PCRCNOTE ---
HOME O2 WILL BE SET UP WITH [employer]. THEY ARE TO BRING A TANK IN FOR TRANSPORT TO HOME FOR D/C TODAY. THEY STATED THAT THEY ARE OKAY WITH PENDING IPA# RATHER THAN CHARGING PT. IF FOR SOME REASON THE PT DOES NOT GET APPROVED THEY WILL BILL HIM. I HAVE FAXED OVER REQUIRED PAPERWORK TO [employer].
--- NOTE | 2019-10-25 13:54 | PM.DS ---
DS: Diagnosis Admitting Diagnosis Admitting Diagnosis: Acute respiratory failure with hypercapnia Discharge Diagnosis (1) Acute hypercapnic respiratory failure: Code(s): J96.02 - Acute respiratory failure with hypercapnia Status: Acute Assessment and Plan: 10/23/19 16:13 This is a pleasant 54-year-old male with known history of chronic COPD who is known to normally smoke about 2 packs of cigarettes daily for the past 40 years and who is from [facility] here visiting for work. The patient presented to the [facility] with severe shortness of breath 2/ Pt has not been taking his inhaler, has not seen doctors for few years. he was placed on BIPAP, started on Solu-Medrol updraft and oxygen, symptoms have improved is not requiring as much oxygen he is now is on 2 L per nasal cannula, patient also started on doxycycline to cover for atypicals as well as Pulmicort, he stats doing better, he was able to take his O2 off for litte while and felt okay, patient's symptoms are improving will continue to monitor and taper is steroid, , patient denies any chest pain shortness of breath palpitation fever or chills, (2) Acute exacerbation of chronic obstructive pulmonary disease (COPD): Code(s): J44.1 - Chronic obstructive pulmonary disease with (acute) exacerbation Status: Acute Assessment and Plan: Continue bronchodilators scheduled and Solu-Medrol. Continue oxygen supplementation as needed to maintain pulse ox greater than 94%. Adviced to quit smoking, plan is above (3) Hyperbilirubinemia: Code(s): E80.6 - Other disorders of bilirubin metabolism Status: Acute Assessment and Plan: Acute versus chronic. continue to monitor (4) Tobacco dependence: Code(s): F17.200 - Nicotine dependence, unspecified, uncomplicated Status: Acute Assessment and Plan: Adviced to quit smoking, given a nicotine patch. DS: Summary Hospital Course Reason for hospitalization: This is a pleasant 54-year-old male with known history of chronic COPD who is known to normally smoke about 2 packs of cigarettes daily for the past 40 years and who is from [facility] here visiting for work. The patient presented to the [facility] with severe shortness of breath. Over the past 2 weeks the patient has had worsening exertional shortness of breath, wheezing, ongoing productive cough of yellowish sputum which has not changed recently, and generalized fatigue. He ran out of his inhalers about 2 weeks ago and has not been able to get them refilled. He is not on any home oxygen. 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 He noticed that he had severe shortness of breath with minimal exertion. The patient does not have any previous history of heart disease and denies any recent peripheral swelling. He does complain of right-sided chest discomfort which has been ongoing for many days now. He denies any recent fevers or chills, nausea or vomiting, abdominal pain, dysuria, hematuria, or rectal bleeding. He has had a few episodes of diarrhea recently. He denies any recent use of antibiotics. Denies any sick contacts. Patient was evaluated emergency room today and found to be in acute hypercapnic respiratory failure. Patient was promptly initiated on BiPAP and admitted to the hospital for further care. He denies any other symptoms at this time. Hospital Course: This is a pleasant 54-year-old male with known history of chronic COPD who is known to normally smoke about 2 packs of cigarettes daily for the past 40 years and who is from [facility] here visiting for work. The patient presented to the hospital [facility] with severe shortness of breath 2/1 Pt has not been taking his inhaler, has not seen doctors for few years. he was placed on BIPAP, started on Solu-Medrol updraft and oxygen, symptoms have improved is not requiring as much oxygen he is now is on 2 L per nasa
--- NOTE | 2019-10-25 14:01 | HOMEO2EVAL ---
Home Oxygen Evaluation RC: Home Oxygen (O2) Evaluation Start: 10/25/19 12:07 Freq: ONCE Status: Active Protocol: RPE Activity Type Activity Date Activity User E-Sign Co-Sign Detail Recorded Client Recorded Date Recorded By Document 10/25/19 13:25 KMV [email or web address] 10/25/19 14:00 KMV Document 10/25/19 13:30 KMV [email or web address] 10/25/19 14:00 KMV Document 10/25/19 13:33 KMV [email or web address] 10/25/19 14:00 KMV Document 10/25/19 13:35 KMV [email or web address] 10/25/19 14:00 KMV Document 10/25/19 13:37 KMV [email or web address] 10/25/19 14:00 KMV Document 10/25/19 13:45 KMV [email or web address] 10/25/19 14:00 KMV 10/25/19 10/25/19 10/25/19 13:25 13:30 13:33 Home O2 Evaluation Test Phase Resting Resting Exercise Oxygen Delivery Room Air Nasal Cannula Nasal Cannula Oxygen Flow Rate (L/min) 1 1 Pulse Oximetry (90-100 %) 86 L 92 84 L Pulse Rate (60-100 beats/min) 111 H 110 H 122 H Home Oxygen Evaluation Comments Treatment Charges O2 Evaluation 10/25/19 10/25/19 10/25/19 13:35 13:37 13:45 Home O2 Evaluation Test Phase Exercise Exercise Resting Oxygen Delivery Nasal Cannula Nasal Cannula Nasal Cannula Oxygen Flow Rate (L/min) 2 3 1 Pulse Oximetry (90-100 %) 86 L 89 L 93 Pulse Rate (60-100 beats/min) 123 H 100 Home Oxygen Evaluation Comments PT REQUIRES 1 AT REST AND 3 WITH ACTIVITY. USED EAR PROBE TO GET ACCURATE READING Treatment Charges
--- NOTE | 2019-10-25 14:09 | PCRCNOTE ---
NEW HOME O2 ORDER ENTERED. 1 L AT REST 3L WITH ACTIVITY
--- NOTE | 2019-10-25 14:48 | PCDIET ---
Nutrition Follow-Up Complete: Underweight as related to COPD as evidenced by BMI:18.4 and weight loss reported of 8 lbs in the past 2 weeks. Adequate Intake of at least 75% of meals/supplements Goal met. Pt is eating 80-100% of meals + Thrive BID Nutrition recommendation: Continuation of Regular diet with Thrive BID in order to meet nutritional needs. Recommend another weight be taken and recorded. Last recorded weight is 58.1 kg. Bowel Motility: +BM 2/6 Labs Reviewed:Na (135), Cl(90), BUN(20), Cr(0.60), Glu(102) Meds Noted:Colace, prednisone, nicoderm Additional Notes: Patient reports good appetite, eating well at meals and Thrive, as well as eating snacks. RD will montior every 5 days.
--- NOTE | 2019-10-25 16:06 | PCNSR ---
On 10/25/19, the student, Deepthi Abel, provided care and completed [facility] documentation on this patient. I have reviewed the student's documentation and agree with the findings.
--- NOTE | 2019-10-27 16:30 | PC.NURSE ---
Follow up call today. Pt report he is unable to make an appt with any of the physicians who were on the list for follow-up provided while he was in the hospital. He believes his Medicare will be active next week, but the doctors on the list that he called would not accept him as a patient with medicaid for insurance. His new phone number is [phone]. Message left in Care Coordination today to have someone follow-up with him to find an accepting physician so that he will be able to follow-up as ordered.
--- NOTE | 2019-10-29 12:03 | PCRCNOTE ---
COPD Post Discharge Phone Call Questions: Week 1 No Answer/Left Message 1. How are you feeling today? 2. Have you had any follow-up appointments since your discharge? Yes/No a. Were you able to attend all appointments? Yes/No b. Do you have any upcoming appointments? Yes/No c. If referred to pulmonary rehab, is it going well? Yes/No 3. Have you had success with smoking cessation? Yes/No a. If you signed a smoking cessation contract, have you been contacted by anyone to assist you? Yes/No 4. Did you go home with any new respiratory medications? Yes/No a. What medications were they? b. Were the possible side effects explained? Yes/No 5. Did you go home with new respiratory equipment (oxygen, CPAP, NIV, Bipap, vent, nebs? Yes/No a. Were you shown how to use them? Yes/No b. Are you comfortable using them? Yes/No c. If not, what issues are you having with the equipment? 6. Have you experienced an increase in any of the following since your discharge... a. Cough? Yes/No b. Mucus Production? Yes/No c. Shortness of Breath? Yes/No d. Tiredness and/or Lethargy? Yes/No 7. Have you had to go to an Urgent Care Center/Emergency Room since discharge? Yes/No 8. Did you discuss with patient how to handle medical emergencies? Yes/No Additional Comments:
--- NOTE | 2019-10-31 10:03 | PCRCNOTE ---
COPD Post Discharge Phone Call Questions: Week 1 1. How are you feeling today? PAIN AND SOB 2. Have you had any follow-up appointments since your discharge? No - HAVING TROUBLE GETTING THROUGH TO DR. SEPULVEDA SHE CAN NOT GET HIM IN UNTIL THE 27. SHE INSTRUCTED HIM TO GO TO ED IF HIS CONDITION WORSENS a. Were you able to attend all appointments? Yes/No b. Do you have any upcoming appointments? Yes/No c. If referred to pulmonary rehab, is it going well? Yes/No 3. Have you had success with smoking cessation? No - CUT BACK SMOKING TO 1PPD a. If you signed a smoking cessation contract, have you been contacted by anyone to assist you? Yes/No 4. Did you go home with any new respiratory medications? Yes a. What medications were they? NEBULIZERS HAS AT HOME ALREADY. b. Were the possible side effects explained? Yes/No 5. Did you go home with new respiratory equipment (oxygen, CPAP, NIV, Bipap, vent, nebs? Yes - OXYGEN, CARE [facility] a. Were you shown how to use them? Yes b. Are you comfortable using them? Yes c. If not, what issues are you having with the equipment? 6. Have you experienced an increase in any of the following since your discharge... a. Cough? No b. Mucus Production? No c. Shortness of Breath? Yes - STATES B/C HE IS STILL SMOKING d. Tiredness and/or Lethargy? No 7. Have you had to go to an Urgent Care Center/Emergency Room since discharge? No 8. Did you discuss with patient how to handle medical emergencies? Yes Additional Comments:
--- NOTE | 2019-11-13 12:43 | COPDDC ---
COPD Post Discharge Phone Call Questions: Week 2 Unable to contact patient. Left Message 1. How are you feeling today? 2. Have you had any follow-up appointments since your discharge? Yes/No a. Were you able to attend all appointments? Yes/No b. Do you have any upcoming appointments? Yes/No c. If referred to pulmonary rehab, is it going well? Yes/No 3. Have you had success with smoking cessation? Yes/No a. If you signed a smoking cessation contract, have you been contacted by anyone to assist you? Yes/No 4. Did you go home with any new respiratory medications? Yes/No a. What medications were they? b. Were the possible side effects explained? Yes/No 5. Did you go home with new respiratory equipment (oxygen, CPAP, NIV, Bipap, vent, nebs? Yes/No a. Were you shown how to use them? Yes/No b. Are you comfortable using them? Yes/No c. If not, what issues are you having with the equipment? 6. Have you experienced an increase in any of the following since your discharge... a. Cough? Yes/No b. Mucus Production? Yes/No c. Shortness of Breath? Yes/No d. Tiredness and/or Lethargy? Yes/No 7. Have you had to go to an Urgent Care Center/Emergency Room since discharge? Yes/No 8. Did you discuss with patient how to handle medical emergencies? Yes/No Additional Comments:
--- NOTE | 2019-11-23 11:33 | PCRCNOTE ---
COPD Post Discharge Phone Call Questions: Week 1 2 3 4 Unable to contact patient. Left Message 1. How are you feeling today? 2. Have you had any follow-up appointments since your discharge? Yes/No a. Were you able to attend all appointments? Yes/No b. Do you have any upcoming appointments? Yes/No c. If referred to pulmonary rehab, is it going well? Yes/No 3. Have you had success with smoking cessation? Yes/No a. If you signed a smoking cessation contract, have you been contacted by anyone to assist you? Yes/No 4. Did you go home with any new respiratory medications? Yes/No a. What medications were they? b. Were the possible side effects explained? Yes/No 5. Did you go home with new respiratory equipment (oxygen, CPAP, NIV, Bipap, vent, nebs? Yes/No a. Were you shown how to use them? Yes/No b. Are you comfortable using them? Yes/No c. If not, what issues are you having with the equipment? 6. Have you experienced an increase in any of the following since your discharge... a. Cough? Yes/No b. Mucus Production? Yes/No c. Shortness of Breath? Yes/No d. Tiredness and/or Lethargy? Yes/No 7. Have you had to go to an Urgent Care Center/Emergency Room since discharge? Yes/No 8. Did you discuss with patient how to handle medical emergencies? Yes/No Additional Comments:
== END 2019-10-25 15:35 | disposition home or self-care (01) | DRG 140 ==
LOC: ANHED 16:21 → ANHIMU 18:10 → ANH2MED 10-23 11:05 → ANHIMU 10-29 07:46
PROVIDERS: Family Medicine; Admitting Provider Family Medicine; Emergency Provider Emergency Medicine; Visit Provider Family Medicine
DX: J44.1 Chronic obstructive pulmonary disease with (acute) exacerbation (principal); J96.02 Acute respiratory failure with hypercapnia; E80.6 Other disorders of bilirubin metabolism; F17.210 Nicotine dependence, cigarettes, uncomplicated
CPT/HCPCS: 36415; 36600; 71046; 80048; 80053; 82375; 82805; 83050; 83735; 83880; 84484; 85025; 85027; 93005; 93306; 94003; 94618; 94640; 96374; 99291; A9270; J2930; J7030; J7512

== ENCOUNTER 2019-11-01 15:34 | Emergency (ER) | payer MEDICAID, SELFPAY ==
--- NOTE | 2019-11-01 15:40 | ED.GENADULT ---
HPI - General Adult General Chief complaint: Shortness of Breath/Dyspnea Stated complaint: breathing issue Time Seen by Provider: 11/01/19 15:40 Source: patient Mode of arrival: ambulatory Limitations: no limitations History of Present Illness HPI narrative: 54-year-old male patient presents to the [facility] with complaints of shortness of breath. Patient was seen and admitted on October 20 for acute respiratory distress and respiratory failure. Patient was discharged from [facility] last with breathing treatments, antibiotics and steroids. Patient states that he finished his antibiotics was still on some steroids but did not take his steroids today. Patient states he started feeling worse yesterday with shortness of breath and try to go back to the [facility] but states it was very crowded at that time and he did not weigh and ended up leaving. Patient states that he does wear oxygen and is currently 3 L on arrival to the [facility]. Patient states he is just overall hurting everywhere including headache and chest. Patient is an active smoker. Related Data Allergies Allergy/AdvReac Type Severity Reaction Status Date / Time No Known Allergies Allergy Mild Unverified 11/01/19 16:04 Review of Systems Review of Systems: Narrative: CONSTITUTIONAL: Denies fever, chills, or sweats. EYES: Denies visual changes, redness, or discharge. ENT: Denies rhinorrhea, congestion, sore throat, or otalgia. CARDIOVASCULAR: Positive chest pain, denies palpitations, or edema. RESPIRATORY: Denies cough, positive dyspnea. GASTROINTESTINAL: Denies abdominal pain, nausea, vomiting, or diarrhea. GENITOURINARY: Denies dysuria or hematuria. SKIN: Denies rash or itching. MUSCULOSKELETAL: Denies back pain, joint pain, or myalgia. NEUROLOGIC: Denies headache, numbness, or weakness. PSYCHIATRIC: Denies anxiety or depression. [facility] Past Medical History Medical History COPD (chronic obstructive pulmonary disease) Surgical History Surgical History H/O right wrist surgery No significant past surgical history Family History Family History Sibling Acute myocardial infarction Cerebrovascular accident Chronic obstructive pulmonary disease Diabetes mellitus Hypertension Sibling Asthma Cerebrovascular accident Chronic obstructive pulmonary disease Hypertension Sibling Chronic obstructive pulmonary disease Hypertension Sibling Chronic obstructive pulmonary disease Hypertension Sibling Chronic obstructive pulmonary disease Hypertension Mother Congestive heart failure Social History Social History Smoking packs per day: 1 Smoking cigarettes per day: 20.0 Years smoked: 40 Smoking pack-years: 40.00 Smoking status: Current every day smoker Tobacco type: cigarettes Alcohol intake: former Substance use: current Substance use type: marijuana Gender identity (if verbalized by the patient): Male Spiritual care concerns: No Agree to blood products: Yes Comments At the time of my signature I agree with nursing past medical history, surgical, social, and family history. There is no relevant family history pertinent to the presenting complaint. Exam Narrative: Exam Narrative: GENERAL: ill-appearing, in acute respiratory distress. HEAD: Normocephalic, atraumatic. EYES: PERRLA and EOMI. ENT: Nares clear, no rhinorrhea or epistaxis. Mucous membranes moist. NECK: Supple. No lymphadenopathy CHEST: Unable to hear any breath sounds on auscultation to bilateral upper lower lobes. Patient in acute respiratory distress with tripoding, broken sentences. Patient is able to talk to me. Patient has significant labored breathing noted. HEART: Regular rate and rhythm. No murmur heard. Normal periphe
[2019-11-01 15:44] VITALS: BP 135/78; PULSE 120; RESP 28; O2SAT 59
[2019-11-01 15:46] VITALS: RESP 28; O2SAT 87
[2019-11-01 15:50] VITALS: PULSE 110; O2SAT 93
[2019-11-01 15:52] VITALS: BP 168/100; PULSE 110; RESP 28; O2SAT 100
[2019-11-01 15:54] VITALS: BP 160/100; PULSE 110; RESP 28; O2SAT 100
--- NOTE | 2019-11-01 16:11 | PC.NURSE ---
Pt taken to room 1--on own oxygen per cannula but color purple by time got to room and tank found to be empty. Initial saturation 23-43%--increased to 93 % on rebreather mask. Nurse staff and Kelly Cuevas [employer] with pt entire time. EkG done best as able due to eratic resp pattern. Pt c/o pain head chest and everywherer . Was admitted to [facility] 10/20-10/29 with resp distress and COPD exacerbation. Manuela was told to come here for med refills?? Tripoding and talks in broken sentences. Male person with patient does not know much about him.
--- NOTE | 2019-11-01 16:14 | PC.NURSE ---
[id number] 911 called and transfer in process.
--- NOTE | 2019-11-01 16:15 | PC.NURSE ---
1550 [facility] staff here--report given and care transferred to them.
--- NOTE | 2019-11-01 16:15 | PC.NURSE ---
[id number] Left via EMS--Nursing report to Naya SAMUELchargemaster specialist nurse at [facility]
--- NOTE | 2019-11-01 16:16 | PC.NURSE ---
Patient left the Department per ambulance with respiratory treatment in place as per medics. Patient is now pink in color and that was noted after application of the NRB with O2. Patient continues to speak in full sentences. SpO2 100% at time of departure.
== END 2019-11-01 16:02 | disposition short-term general hospital (02) ==
PROVIDERS: Emergency Provider Nurse Practitioner Family
DX: R06.03 Acute respiratory distress (principal); F17.210 Nicotine dependence, cigarettes, uncomplicated; J44.9 Chronic obstructive pulmonary disease, unspecified; Z99.81 Dependence on supplemental oxygen
CPT/HCPCS: 99215; G0463

== ENCOUNTER 2019-11-01 16:23 | Inpatient (IN) | payer MEDICAID, SELFPAY ==
[2019-11-01] VITALS (15 sets, daily range): BP systolic 98–146; BP diastolic 60–99; PULSE 81–112; RESP 12–35; TEMP 36.2–36.6; O2SAT 93–100; BMI 19.2
--- NOTE | ~2019-11-01 | XR_ITS ---
EXAMINATION: XR chest 1V portable DATE: 11/01/2019 17:07 INDICATION: Shortness of breath. TECHNIQUE: A single frontal view of the chest was obtained. COMPARISON: Chest 2 views 10/20/2019 FINDINGS: The lungs are hyperinflated. The chest demonstrates clear lungs without pneumonia, pleural effusion, or pneumothorax. The heart size is normal. IMPRESSION: 1. Hyperinflated lungs, consistent with chronic obstructive pulmonary disease. Reviewed, dictated and finalized at location A. TRIC CAR OPERATOR
--- NOTE | 2019-11-01 16:23 | ED.SOB ---
HPI - SOB/Dyspnea General Chief Complaint: Shortness of Breath/Dyspnea Stated Complaint: sob Time Seen by Provider: 11/01/19 16:24 Source: patient, EMS and RN notes reviewed Mode of arrival: EMS Limitations: no limitations History of Present Illness HPI Narrative: Pt is a 54 y/o male with a Hx of COPD, who presents to the ED via EMS with c/o SOB. According to old records, the pt was evaluated here on 10/20/19 for an acute COPD exacerbation. He was eventually discharged home on 10/25/19 with Doxycycline. Pt was never intubated or placed in ICU during his stay. According to EMS, the pt came here yesterday for SOB, but left prematurely due to it taking too long for him to be seen. They note that the pt appeared purple in color while at an urgent care facility earlier this afternoon. According to the nurse, the pt's O2 saturation was initially 20% while at the facility. EMS notes that the pt had absent breath sounds while in route to the ED. They administered two rounds of Albuterol 5 mg prior to his arrival to the ED. Pt currently reports a headache and neck pain, but denies any CP or other symptoms. He notes that he is still currently smoking. MD elicited complaint: shortness of breath Pertinent past history: COPD Known history of: COPD Associated symptoms: other (neck pain; headache) Treatment prior to arrival: bronchodilator Related Data Allergies Allergy/AdvReac Type Severity Reaction Status Date / Time No Known Allergies Allergy Mild Unverified 11/01/19 16:04 Review of Systems Review of Systems: Narrative: CARDIOVASCULAR: Denies chest pain, palpitations, or edema. RESPIRATORY: Denies cough. Reports dyspnea. MUSCULOSKELETAL: Reports neck pain. NEUROLOGICAL: Reports headache. All systems reviewed & are unremarkable except as noted in HPI and below PMFSH Past Medical History Medical History (Updated 11/01/19 @ 22:11 by Suzette Merida PA-C) Acute respiratory failure with hypoxia and hypercapnia COPD (chronic obstructive pulmonary disease) Tobacco dependence Surgical History Surgical History (Updated 11/01/19 @ 22:10 by Suzette Merida PA-C) History of surgery on right wrist Family History Family History Sibling Acute myocardial infarction Cerebrovascular accident Chronic obstructive pulmonary disease Diabetes mellitus Hypertension Sibling Asthma Cerebrovascular accident Chronic obstructive pulmonary disease Hypertension Sibling Chronic obstructive pulmonary disease Hypertension Sibling Chronic obstructive pulmonary disease Hypertension Sibling Chronic obstructive pulmonary disease Hypertension Mother Congestive heart failure Social History Social History Smoking packs per day: 2 Smoking cigarettes per day: 40.0 Years smoked: 40 Smoking pack-years: 80.00 Smoking status: Current every day smoker Tobacco type: cigarettes Additional smoking assessment comments: recently cut back to 2 cigarettes daily Alcohol intake: former Substance use: current Substance use type: marijuana Gender identity (if verbalized by the patient): Male Spiritual care concerns: No Agree to blood products: Yes Exam Narrative: Exam Narrative: GENERAL: Awake and alert. HEAD: Normocephalic, atraumatic. EYES: PERRLA and EOMI. ENT: Nares clear, no rhinorrhea or epistaxis. Mucous membranes moist. NECK: Supple. CHEST: Absent breath sounds on rt lung. Faint expiratory wheezing in lt upper lung. Respiratory distress. Tachypnea. Currently on BIPAP. HEART: Regular rate and rhythm. No murmur heard. Normal peripheral pulses. ABDOMEN: Soft, nontender, nondistended, normal active bowel sounds. EXTREMITIES: Normal range of motion. No edema. SKIN: Warm, dry, no rash. NEURO: No focal deficits. Alert and oriented. Course Course Emergency Course: Patient presented to the emergency department f
--- NOTE | 2019-11-01 16:25 | ECG_ITS ---
Measurements Intervals [place] Rate: 103 P: 74 NV: 130 QRS: 98 QRSD: 81 T: 63 QT: 313 QTc: 412 Interpretive Statements SINUS TACHYCARDIA POSSIBLE LEFT ATRIAL ENLARGEMENT RIGHT AXIS DEVIATION BORDERLINE ECG Electronically Signed On 11-01-2019 16:55:17 KICK PRESS OPERATOR by Ash Salcedo D.O.
[2019-11-01] MEDS: ALBUTEROL SULFATE NEB 2.5 MG/0.5 ML INH 20 MG INHALATION (16:34)
[2019-11-01 16:41] LABS: Alveolar/Arterial O2 Gradient 433.1 mmHg; Fractional Inspired Oxygen 100 %; HCO3 ABG 52.9 mEq/l (22.0-26.0); Oxygen Content ABG 20.9 %vol (16.0-22.0); Oxygen Saturation ABG 98.3 % (95.0-100.0); Oxyhemoglobin 94.3 % THb (90.0-100.0); PO2 ABG 150.3 mmHg (80.0-100.0); Total Hemoglobin 15.6 g/dL (12.0-18.0)
[2019-11-01 16:42] LABS: Modified Allen's Test Pass; PCO2 ABG 129.6 mmHg (35.0-45.0); Site Drawn RIGHT RADIAL; pH ABG 7.229 (7.350-7.450)
[2019-11-01 16:43] LABS: Device NON-INVASIVE VENT; Non-Invasive Expiratory Pressure 5 CMH2O; Non-Invasive Inspiratory Pressure 12 CMH2O; Non-Invasive Vent Rate 4 /MIN
[2019-11-01 16:52] LABS: Basophils Percent Auto 0.5 % (0.2-1.2); Hematocrit 50.6 % (42.0-52.0); Hemoglobin 14.8 g/dL (14.0-18.0); Immature Granulocyte Absolute 0.11 K/mm3 (0.00-0.031); Immature Granulocyte Percent A 1.3 % (0-0.5); Lymphocytes Absolute Auto 1.15 K/mm3 (0.9-3.2); Mean Corpuscular HGB Conc 29.2 g/dl (32-36); Mean Corpuscular Hemoglobin 30.3 pg (26-34); Mean Corpuscular Volume 103.7 fl (80-100); Mean Platelet Volume 10.1 fl (7.4-10.4); Monocytes Absolute Auto 0.9 K/mm3 (0.1-0.6); Monocytes Percent Auto 10.8 % (2.6-8.5); Neutrophils Percent Auto 73.4 % (45.5-73.1); Platelet Count Result 246 k/mm3 (150-375); Red Blood Count 4.88 M/mm3 (4.6-6.20); Red Cell Distribution Width 13.9 % (11.5-14.5); White Blood Count 8.2 K/mm3 (4.5-10.0)
[2019-11-01] MEDS: SODIUM CHLORIDE 0.9% IV 1,000 ML 999 ML IV CONT (16:59)
[2019-11-01] MEDS: MAGNESIUM SULF 2 GM/WATER 50ML 2 GM/50 ML BAG IVPB (16:59)
[2019-11-01 17:07] LABS: Blood Urea Nitrogen 21 mg/dL (9-20); Calcium 8.9 mg/dL (8.4-10.2); Carbon Dioxide > 40 mmol/L (22-30); Chloride 85 mmol/L (98-107); Estimated CRCL calculation 153 ml/min; Estimated Glomerular Filt Rate > 60; Glucose 104 mg/dL (75-110); Potassium 4.9 mmol/L (3.4-5.0); Sodium 136 mmol/L (137-145)
[2019-11-01] MEDS: IPRATROPIUM BR 0.02% INH SOLN 0.5 MG/2.5 ML VIAL 2 MG INHALATION (17:19)
[2019-11-01 17:54] LABS: Alveolar/Arterial O2 Gradient 30.2 mmHg; Base Excess ABG 10.2 mEq/l (+/-2.0); Carboxyhemoglobin 3.5 % THb (0-2.0); Fractional Inspired Oxygen 50 %; Methemoglobin ABG 0.4 %THb (0-1.5); Oxygen Content ABG 20.5 %vol (16.0-22.0); Oxygen Saturation ABG 98.9 % (95.0-100.0); Oxyhemoglobin 94.9 % THb (90.0-100.0); PO2 ABG 193.1 mmHg (80.0-100.0); PO2 FiO2 Ratio Arterial Blood 3.86 %; Reduced Hemoglobin 1.2 %THb (0-5.0); Total Hemoglobin 15.1 g/dL (12.0-18.0)
[2019-11-01 17:55] LABS: Device NON-INVASIVE VENT; Modified Allen's Test Pass; PCO2 ABG 118.4 mmHg (35.0-45.0); Site Drawn RIGHT RADIAL; pH ABG 7.188 (7.350-7.450)
[2019-11-01 17:56] LABS: Non-Invasive Expiratory Pressure 5 CMH2O; Non-Invasive Inspiratory Pressure 12 CMH2O; Non-Invasive Vent Rate 4 /MIN
[2019-11-01] MEDS: SODIUM CHLORIDE 0.9% IV 1,000 ML 125 ML IV CONT (20:51)
--- NOTE | 2019-11-01 20:51 | PC.NURSE ---
This patient, Richard Simon, was admitted to IMU Room 214-01. Patient/family oriented to hospital policies and general routines including ID bracelet, bed and alarms, visiting hours, pain management, procedures, bathroom and other care routines, personal items, smoking policy, room service/diet, and visiting hours. Valuables list has been completed. Information on how to activate the Rapid Response Team has been discussed. Patient/Family are encouraged to report perceived risks to care and to ask questions if they do not understand what they are told or what they should do.
[2019-11-01 21:20] LABS: Alveolar/Arterial O2 Gradient 135.9 mmHg; Base Excess ABG 13.8 mEq/l (+/-2.0); Carboxyhemoglobin 2.2 % THb (0-2.0); Fractional Inspired Oxygen 50 %; HCO3 ABG 47.2 mEq/l (22.0-26.0); Methemoglobin ABG 0.4 %THb (0-1.5); Oxygen Content ABG 20.4 %vol (16.0-22.0); PO2 ABG 93.1 mmHg (80.0-100.0); PO2 FiO2 Ratio Arterial Blood 1.86 %; Reduced Hemoglobin 3.4 %THb (0-5.0); Total Hemoglobin 15.4 g/dL (12.0-18.0)
[2019-11-01 21:21] LABS: pH ABG 7.238 (7.350-7.450)
[2019-11-01 21:22] LABS: Device NON-INVASIVE VENT; Modified Allen's Test Pass; Non-Invasive Expiratory Pressure 10 CMH2O; Non-Invasive Inspiratory Pressure 20 CMH2O; Non-Invasive Vent Rate 4 /MIN; PCO2 ABG 113.3 mmHg (35.0-45.0); Site Drawn RIGHT RADIAL
--- NOTE | 2019-11-01 22:09 | PM.IMHP ---
H&P: HPI History of Present Illness Chief complaint: Shortness of breath. Narrative: Richard Simon is a 54 year old male smoker with chronic respiratory failure as evidence by blood gases and COPD who presented to the emergency department earlier this afternoon via EMS from urgent care for evaluation of shortness of breath. He was recently admitted to the hospitalist service on October 20 through October 25, 2019 for treatment of acute on chronic respiratory failure as well as COPD exacerbation. He was discharged with a prednisone taper, of which he is nearly finished, and seemed to be doing better. Over last couple of days, however, he has become increasingly short of breath on lesser and lesser exertion. Reportedly he came to the emergency department a couple of days ago, but left before being seen due to the wait. Today he instead presented to urgent care, and on arrival he reportedly had an SpO2 of 20%. He was given 10 milligrams of albuterol in route to the hospital and was started on BiPAP shortly thereafter given severe hypercarbia. Due to lapses in insurance, although he is currently insured, he has never been on maintenance inhalers for any extended period of time. He believes the weather has led to acute worsening of his breathing. He does continue smoke, but has only had a couple of cigarettes a day for the past several days due to wheezing and shortness of breath. He sleeps poorly due to his breathing. Has no known history of sleep apnea. He denies fever, chills, and sweats. He has a nonproductive cough. He has a mild headache at this time. He also has complaints of low back pain, which is chronic for him. No pleuritic pain or palpitations. No lower extremity edema. He denies nausea and vomiting. He denies confusion. Review of Systems Review of Systems: All systems reviewed & are unremarkable except as noted in HPI and below PMFSH Past Medical History Medical History (Updated 11/01/19 @ 22:11 by Suzette Merida PA-C) Acute respiratory failure with hypoxia and hypercapnia COPD (chronic obstructive pulmonary disease) Tobacco dependence Surgical History Surgical History (Updated 11/01/19 @ 22:10 by Suzette Merida PA-C) History of surgery on right wrist Family History Family History Sibling Acute myocardial infarction Cerebrovascular accident Chronic obstructive pulmonary disease Diabetes mellitus Hypertension Sibling Asthma Cerebrovascular accident Chronic obstructive pulmonary disease Hypertension Sibling Chronic obstructive pulmonary disease Hypertension Sibling Chronic obstructive pulmonary disease Hypertension Sibling Chronic obstructive pulmonary disease Hypertension Mother Congestive heart failure Social History Social History (Updated 11/02/19 @ 02:50 by Suzette Merida PA-C) Social History: He is currently living in [place]. He is originally from [place], [place] and intends to move back there soon. 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 He has smoked up to 2 packs of cigarettes per day for the last 40 years but seems motivated to quit smoking. His sister apparently has severe end-stage COPD, and he does not want to get to that point. He does not use E cigarettes. He does smoke marijuana most days. He denies alcohol abuse. He wishes to be a full code. Smoking packs per day: 2 Smoking cigarettes per day: 40.0 Years smoked: 40 Smoking pack-years: 80.00 Smoking status: Current every day smoker Tobacco type: cigarettes Additional smoking assessment comments: recently cut back to 2 cigarettes daily Alcohol intake: former Substance use: current Substance use type: marijuana Gender identity (if verbalized by the patient): Male Spiritual care concerns: No Agree to blood products: Yes Meds Home Medications and Allergies Home Medications Medication Instructions Recorded Confirmed
[2019-11-01] MEDS: ALBUTEROL SULFATE NEB 2.5 MG/0.5 ML INH 5 MG INHALATION (22:39)
[2019-11-01] MEDS: IPRATROPIUM BR 0.02% INH SOLN 0.5 MG/2.5 ML VIAL INHALATION (22:39)
[2019-11-02] VITALS (23 sets, daily range): BP systolic 127–176; BP diastolic 65–88; PULSE 79–113; RESP 16–24; TEMP 36.4–37; O2SAT 91–98
[2019-11-02 00:14] LABS: Alveolar/Arterial O2 Gradient 159.7 mmHg; Carboxyhemoglobin 1.6 % THb (0-2.0); Fractional Inspired Oxygen 50 %; HCO3 ABG 38.7 mEq/l (22.0-26.0); Methemoglobin ABG 0.4 %THb (0-1.5); Oxygen Content ABG 19.4 %vol (16.0-22.0); Oxygen Saturation ABG 96.1 % (95.0-100.0); Oxyhemoglobin 94.9 % THb (90.0-100.0); PO2 ABG 97.7 mmHg (80.0-100.0); PO2 FiO2 Ratio Arterial Blood 1.95 %; Reduced Hemoglobin 3.1 %THb (0-5.0); Total Hemoglobin 14.5 g/dL (12.0-18.0)
[2019-11-02 00:15] LABS: Modified Allen's Test Pass; PCO2 ABG 88.1 mmHg (35.0-45.0); Site Drawn RIGHT RADIAL; pH ABG 7.261 (7.350-7.450)
[2019-11-02 00:16] LABS: Device NON-INVASIVE VENT; Non-Invasive Expiratory Pressure 10 CMH2O; Non-Invasive Inspiratory Pressure 20 CMH2O; Non-Invasive Vent Rate 14 /MIN
[2019-11-02] MEDS: methylPREDNISolone SOD SUCC 125 MG VIAL 60 MG IV PUSH ×5 (00:54→23:48)
[2019-11-02] MEDS: ACETAMINOPHEN 325 MG TABLET 650 MG PO ×5 (00:54→20:50)
[2019-11-02] MEDS: IPRATROPIUM BR 0.02% INH SOLN 0.5 MG/2.5 ML VIAL INHALATION ×4 (02:52→20:00)
[2019-11-02] MEDS: ALBUTEROL SULFATE NEB 2.5 MG/0.5 ML INH 5 MG INHALATION ×4 (02:53→19:59)
--- NOTE | 2019-11-02 09:03 | PM.IMPN ---
Progress Note: A&P Assessment and Plan (1) Acute and chronic respiratory failure: Qualifiers: Respiratory failure complication: hypoxia and hypercapnia Qualified Code(s): J96.21 - Acute and chronic respiratory failure with hypoxia; J96.22 - Acute and chronic respiratory failure with hypercapnia Code(s): J96.20 - Acute and chronic respiratory failure, unspecified whether with hypoxia or hypercapnia Status: Acute Assessment and Plan: Will likely require home BiPAP or trilogy Morning blood gases pending Pulmonary consult pending Continue on 3 L of oxygen while awake and BiPAP at 10/20 FiO2 30 rate 18 while sleeping Discussed at length and in detail with his niece by phone at bedside (2) Acute exacerbation of chronic obstructive pulmonary disease (COPD): Code(s): J44.1 - Chronic obstructive pulmonary disease with (acute) exacerbation Status: Acute Assessment and Plan: Steroids and bronchodilators and pulmonary toilet BiPAP as he will tolerate (3) Tobacco dependence: Code(s): F17.200 - Nicotine dependence, unspecified, uncomplicated Status: Acute Assessment and Plan: Aware of need to quit Subjective Date/time seen: 11/02/19 09:03 Interval history: Feels much better today. No cough. No wheezing. No chest pain. No GI or complaints. Tolerating his diet. Initially refused to wear BiPAP at home. But is starting to relent after discussing how near end-stage his COPD is and how near he is. He acknowledges that he must quit smoking. Review of Systems Review of Systems: All systems reviewed & are unremarkable except as noted in HPI and below Exam Narrative: Exam Narrative: HEENT: EOMI, PERRL, pharyngeal mucosa pink and intact NECK: No JVD CHEST: Increased anteroposterior diameter with diminished breath sounds throughout HEART: NL S1/S2, regular, no murmur ABDOMEN: BS+, soft, nontender, no mass, no bruits EXTREMITIES: No cyanosis, edema, or clubbing NEUROLOGIC: CN intact and symmetric to inspection. MUSCULOSKELETAL: Tone and strength symmetric. PSYCH: Alert. Oriented to person, place, and time. Objective Data Vital Signs Vital Signs: Vital Signs - 24 hr 11/01/19 16:23 11/01/19 16:38 11/01/19 16:39 Temperature 97.5 F L Pulse Rate 112 H 107 H 105 H Respiratory Rate 32 H 35 H 28 H Blood Pressure Pulse Oximetry 100 100 11/01/19 17:17 11/01/19 17:57 11/01/19 18:06 Temperature Pulse Rate 101 H 84 84 Respiratory Rate 24 H 28 H 22 H Blood Pressure 144/92 H Pulse Oximetry 98 100 11/01/19 20:31 11/01/19 20:35 11/01/19 20:45 Temperature 97.9 F Pulse Rate 88 91 86 Respiratory Rate 12 13 20 Blood Pressure 136/99 H 136/99 H Pulse Oximetry 96 96 93 11/01/19 20:50 11/01/19 20:51 11/01/19 22:00 Temperature 97.1 F L Pulse Rate 97 97 88 Respiratory Rate 19 Blood Pressure 146/85 H Pulse Oximetry 99 11/01/19 22:39 11/01/19 22:52 11/01/19 23:57 Temperature 97.8 F Pulse Rate 87 81 82 Respiratory Rate 20 24 H 15 Blood Pressure 98/60 L Pulse Oximetry 95 98 11/02/19 00:00 11/02/19 02:00 11/02/19 02:53 Temperature Pulse Rate 86 86 83 Respiratory Rate 20 Blood Pressure Pulse Oximetry 95 11/02/19 03:05 11/02/19 04:00 11/02/19 04:02 Temperature 97.7 F Pulse Rate 85 81 79 Respiratory Rate 20 22 H Blood Pressure 129/77 Pulse Oximetry 94 11/02/19 05:40 11/02/19 08:00 11/02/19 08:08 Temperature 98.6 F Pulse Rate 86 105 H 110 H Respiratory Rate 24 H Blood Pressure 147/87 H Pulse Oximetry 94 11/02/19 08:56 11/02/19 08:57 Temperature Pulse Rate 104 H Respiratory Rate 20 Blood Pressure Pulse Oximetry 92 Intake/Output Intake/Output: Intake & Output 10/30/19 10/31/19 11/01/19 11/02/19 23:59 23:59 23:59 23:59 Intake Total 1050 2680 Output Total 275 450 Balance 775 2230 Meds/Results Medications: Active Medications Generic Na
[2019-11-02 09:14] LABS: Alveolar/Arterial O2 Gradient 69.9 mmHg; Base Excess ABG 9.9 mEq/l (+/-2.0); Fractional Inspired Oxygen 32 %; HCO3 ABG 39.4 mEq/l (22.0-26.0); Oxygen Content ABG 18.2 %vol (16.0-22.0); Oxygen Saturation ABG 90.6 % (95.0-100.0); Oxyhemoglobin 91.9 % THb (90.0-100.0); PO2 ABG 66.5 mmHg (80.0-100.0); PO2 FiO2 Ratio Arterial Blood 2.08 %; Total Hemoglobin 14.1 g/dL (12.0-18.0); pH ABG 7.319 (7.350-7.450)
[2019-11-02 09:17] LABS: Device NASAL CANNULA; Modified Allen's Test Pass; PCO2 ABG 78.4 mmHg (35.0-45.0); Site Drawn RIGHT RADIAL
--- NOTE | 2019-11-02 14:56 | PC.NURSE ---
This patient, Richard Simon, was transferred to [ [address] [place] [address]] on 11/02/19 at 1456. Personal belongings sent with patient. Belongings list checked and signed with receiving [ ]. Report given to [ gabi garcia]. Appropriate documentation sent with patient.
--- NOTE | 2019-11-02 19:50 | PM.CNPUL ---
Assessment and Plan Assessment and plan (1) Acute and chronic respiratory failure: Qualifiers: Respiratory failure complication: hypoxia and hypercapnia Qualified Code(s): J96.21 - Acute and chronic respiratory failure with hypoxia; J96.22 - Acute and chronic respiratory failure with hypercapnia Code(s): J96.20 - Acute and chronic respiratory failure, unspecified whether with hypoxia or hypercapnia Status: Acute Assessment and Plan: May have used excessive amounts of O2; just started on O2 therapy' says he was using at 3-4 L/min, Wean O2, COPD controller medications - add Symbicort. See if he would benefit from Trilogy or other NPPV; he has acute on chronic hypercapnic hypoxemic respiratory failure. Needs to stop smoking, tobacco and marijuana. (2) Tobacco dependence: Code(s): F17.200 - Nicotine dependence, unspecified, uncomplicated Status: Acute History of Present Illness History of Present Illness Consult date: 11/02/19 Requesting physician: Suzette Merida PA-C Reason for consult: other (hypercapnic respiratory failure) Chief complaint: Shortness of breath. Narrative: NEW CONSULT: Richard Simon is a 54 yo man recently admitted Oct 20 with hypercapnic respiratory failurere, was started on O2 for the first time at discharge. He was using this new O2 set up at home, 3-4 L/min, which was perhaps more than he needed. He does not have an oximeter. He came to the hospital yesterday with CO2 129, responded to BiPAP; he has not used any COPD controller meds over the last 4 months, only rescue meds through his nebulizer. He is from [facility], so he is visiting here, does not have a doctor here. He smokes heavily, wants to quit, smokes marijuana most days. 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 Was diagnosed with COPD 5 years ago. He lives with a friend, Sacha Chirinos, nonsmoker. He has a significant amt of back pain, wants Flexeril. He has a strong fam history of lung disease: [place]; sister with trach on vent 10 years; asthma/COPD Alicia Quezada; sister with BiPAP at [place] Rossi Simon; sister with COPD Kristine Simon; brother with COPD Review of Systems Review of Systems: Narrative: lots of back pain; has used Flexeril in the past; PMFSH Past Medical History Medical History (Updated 11/02/19 @ 09:06 by Darius Ennis MD) Acute respiratory failure with hypoxia and hypercapnia COPD (chronic obstructive pulmonary disease) Tobacco dependence Surgical History Surgical History (Updated 11/01/19 @ 22:10 by Suzette Merida PA-C) History of surgery on right wrist Family History Family History Sibling Acute myocardial infarction Cerebrovascular accident Chronic obstructive pulmonary disease Diabetes mellitus Hypertension Sibling Asthma Cerebrovascular accident Chronic obstructive pulmonary disease Hypertension Sibling Chronic obstructive pulmonary disease Hypertension Sibling Chronic obstructive pulmonary disease Hypertension Sibling Chronic obstructive pulmonary disease Hypertension Mother Congestive heart failure Social History Social History (Updated 11/02/19 @ 02:50 by Suzette Merida PA-C) Social History: He is currently living in [place]. He is originally from [place], [place] and intends to move back there soon. 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 He has smoked up to 2 packs of cigarettes per day for the last 40 years but seems motivated to quit smoking. His sister apparently has severe end-stage COPD, and he does not want to get to that point. He does not use E cigarettes. He does smoke marijuana most days. He denies alcohol abuse. He wishes to be a full code. Smoking packs per day: 2 Smoking cigarettes per day: 40.0 Years smoked: 40 Smoking pack-years: 80.00 Smoking status: Current every day smoker Tobacco type: cigarettes Additional smoking assessment comments: recently cut back to 2 cigaret
[2019-11-02] MEDS: MELATONIN 3 MG TABLET PO (20:50)
[2019-11-03] VITALS (19 sets, daily range): BP systolic 123–146; BP diastolic 69–87; PULSE 83–108; RESP 14–30; TEMP 36.4–37.2; O2SAT 90–95
[2019-11-03] MEDS: ACETAMINOPHEN 325 MG TABLET 650 MG PO ×2 (02:24→06:28)
[2019-11-03] MEDS: CYCLOBENZAPRINE HCL 10 MG TABLET PO ×3 (02:25→20:14)
[2019-11-03] MEDS: IPRATROPIUM BR 0.02% INH SOLN 0.5 MG/2.5 ML VIAL INHALATION ×4 (03:17→22:23)
[2019-11-03] MEDS: ALBUTEROL SULFATE NEB 2.5 MG/0.5 ML INH 5 MG INHALATION ×4 (03:17→22:23)
[2019-11-03 04:51] LABS: Alveolar/Arterial O2 Gradient 59.8 mmHg; Base Excess ABG 8.3 mEq/l (+/-2.0); Fractional Inspired Oxygen 30 %; HCO3 ABG 36.5 mEq/l (22.0-26.0); Oxygen Content ABG 18.5 %vol (16.0-22.0); Oxygen Saturation ABG 93.9 % (95.0-100.0); Oxyhemoglobin 94.4 % THb (90.0-100.0); PO2 ABG 74.9 mmHg (80.0-100.0); Total Hemoglobin 13.9 g/dL (12.0-18.0); pH ABG 7.351 (7.350-7.450)
[2019-11-03 04:52] LABS: PCO2 ABG 67.4 mmHg (35.0-45.0); Site Drawn LEFT RADIAL
[2019-11-03 04:53] LABS: Device NON-INVASIVE VENT; Modified Allen's Test Pass; Non-Invasive Expiratory Pressure 10 CMH2O; Non-Invasive Inspiratory Pressure 20 CMH2O; Non-Invasive Vent Rate 18 /MIN
[2019-11-03] MEDS: methylPREDNISolone SOD SUCC 125 MG VIAL 60 MG IV PUSH ×3 (06:00→20:13)
[2019-11-03 06:06] LABS: Hematocrit 41.4 % (42.0-52.0); Mean Corpuscular HGB Conc 31.4 g/dl (32-36); Mean Corpuscular Hemoglobin 30.9 pg (26-34); Mean Corpuscular Volume 98.3 fl (80-100); Mean Platelet Volume 10.6 fl (7.4-10.4); Platelet Count Result 243 k/mm3 (150-375); Red Blood Count 4.21 M/mm3 (4.6-6.20); Red Cell Distribution Width 13.6 % (11.5-14.5); White Blood Count 15.4 K/mm3 (4.5-10.0)
[2019-11-03 06:24] LABS: Blood Urea Nitrogen 16 mg/dL (9-20); Calcium 8.6 mg/dL (8.4-10.2); Carbon Dioxide > 40 mmol/L (22-30); Chloride 90 mmol/L (98-107); Estimated CRCL calculation 155 ml/min; Estimated Glomerular Filt Rate > 60; Glucose 169 mg/dL (75-110); Potassium 3.9 mmol/L (3.4-5.0); Sodium 136 mmol/L (137-145)
--- NOTE | 2019-11-03 14:23 | PM.IMPN ---
Progress Note: A&P Assessment and Plan (1) Acute and chronic respiratory failure: Qualifiers: Respiratory failure complication: hypoxia and hypercapnia Qualified Code(s): J96.21 - Acute and chronic respiratory failure with hypoxia; J96.22 - Acute and chronic respiratory failure with hypercapnia Code(s): J96.20 - Acute and chronic respiratory failure, unspecified whether with hypoxia or hypercapnia Status: Acute Assessment and Plan: Will likely require home BiPAP or trilogy Pulmonary consult pending Continue on 2 L of oxygen while awake and BiPAP at 10/20 FiO2 30 rate 18 while sleeping (2) Acute exacerbation of chronic obstructive pulmonary disease (COPD): Code(s): J44.1 - Chronic obstructive pulmonary disease with (acute) exacerbation Status: Acute Assessment and Plan: Steroids(start taper q12h ) and bronchodilators and pulmonary toilet BiPAP as he will tolerate (3) Tobacco dependence: Code(s): F17.200 - Nicotine dependence, unspecified, uncomplicated Status: Acute Assessment and Plan: Aware of need to quit Subjective Date/time seen: 11/03/19 14:23 Interval history: Date of visit 11/03. feels much better today. No cough. No wheezing. No chest pain. No GI or complaints. Tolerating his diet. Initially refused to wear BiPAP at home. But is starting to relent after discussing how near end-stage his COPD . He acknowledges that he must quit smoking. Wanting to go home wants BiPAP has been established Exam Narrative: Exam Narrative: Blood pressure 130/70 pulse is 100 saturating 90% on 1 L nasal cannula afebrile HEENT: EOMI, PERRL, NECK: Supple CHEST: Increased anteroposterior diameter with diminished breath sounds throughout no wheezing or consolidation HEART: NL S1/S2, regular, no murmur ABDOMEN: BS+, soft, nontender, no mass, no bruits EXTREMITIES: No cyanosis, edema, or clubbing NEUROLOGIC: No focal deficits Objective Data Vital Signs Vital Signs: Vital Signs - 24 hr 11/02/19 14:45 11/02/19 14:54 11/02/19 15:00 Temperature 36.5 C Pulse Rate 110 H 112 H 105 H Respiratory Rate 20 20 16 Blood Pressure 176/88 H Pulse Oximetry 98 11/02/19 15:38 11/02/19 18:00 11/02/19 20:02 Temperature 36.5 C 36.4 C Pulse Rate 102 H Respiratory Rate 16 Blood Pressure 138/74 Pulse Oximetry 92 95 11/02/19 20:04 11/02/19 20:14 11/02/19 20:35 Temperature Pulse Rate 96 101 H Respiratory Rate 18 18 Blood Pressure Pulse Oximetry 94 11/02/19 21:31 11/03/19 01:20 11/03/19 02:20 Temperature 36.7 C 36.7 C Pulse Rate 105 H 92 98 Respiratory Rate 16 25 H 18 Blood Pressure 127/65 133/69 Pulse Oximetry 91 93 92 11/03/19 03:20 11/03/19 03:30 11/03/19 04:00 Temperature 36.4 C Pulse Rate 83 84 89 Respiratory Rate 18 18 22 H Blood Pressure 126/75 Pulse Oximetry 91 95 11/03/19 04:40 11/03/19 07:49 11/03/19 08:00 Temperature Pulse Rate 84 90 86 Respiratory Rate 21 H 18 18 Blood Pressure Pulse Oximetry 94 92 92 11/03/19 10:00 Temperature 37.0 C Pulse Rate 108 H Respiratory Rate 16 Blood Pressure 131/69 Pulse Oximetry 90 Intake/Output Intake/Output: Intake & Output 10/31/19 11/01/19 11/02/19 11/03/19 23:59 23:59 23:59 23:59 Intake Total 1050 4810 1835 Output Total 275 450 950 Balance 775 4360 885 Meds/Results Medications: Active Medications Generic Name Dose Route Start Last Admin Trade Name Freq PRN Reason Stop Dose Admin Acetaminophen 650 mg 11/01/19 18:03 11/03/19 06:28 Tylenol Tablet PO 650 mg Q4H PRN Administration Mild Pain (1-3) or Fever Albuterol 5 mg 11/01/19 20:00 11/03/19 07:48 Albuterol Sulf Neb 2.5mg/0.5ml INHALATION 5 mg Q6HRT OZIEL Administration Budesonide/Formoterol Fumarate 2 puff 11/03/19 08:00 11/03/19 07:58 Symbicort 160-4.5 Mcg (*Sp) Inhaler INHALATION 2 puff Q12HRT OZIEL Administration Cyclobenzaprine HCl
--- NOTE | 2019-11-03 18:49 | PM.PNPUL ---
Progress Note: A&P Assessment and Plan (1) Acute and chronic respiratory failure: Qualifiers: Respiratory failure complication: hypoxia and hypercapnia Qualified Code(s): J96.21 - Acute and chronic respiratory failure with hypoxia; J96.22 - Acute and chronic respiratory failure with hypercapnia Code(s): J96.20 - Acute and chronic respiratory failure, unspecified whether with hypoxia or hypercapnia Status: Acute Assessment and Plan: I am ordering Trilogy for daytime use and nocturnal use to treat chronic respiratory failure due to COPD. BiPAP has been rtied and has been shown not to be effective. He relapsed and required a readmission a few days after discharge. This is necessary for his disease process and to maintain health. (2) Acute exacerbation of chronic obstructive pulmonary disease (COPD): Code(s): J44.1 - Chronic obstructive pulmonary disease with (acute) exacerbation Status: Acute Assessment and Plan: Responded to treatment including steroids, bronchodilators, controller meds. (3) Tobacco dependence: Code(s): F17.200 - Nicotine dependence, unspecified, uncomplicated Status: Acute Assessment and Plan: Essential to maintaining his health and remaining out of the hospital. Time Spent With Patient Time with patient: less than 15 minutes Subjective Date/time seen: 11/03/19 18:49 This 54 yo man is seen in follow up for COPD exacerbation and acute on chronic resp failure, elevated pCO2; he recently started using supplemental O2, was still smoking. He really says he wants to quit. He is asking zfor [place] for back pain. I ordered Flexeril last night, and he says it helps. Wants [place]. Defer to Medical Team. Review of Systems Review of Systems: Narrative: I am ready to go home as soon as I can get my meds, and the Trilogy if this can be arranged. We are working on it now. All systems reviewed & are unremarkable except as noted in HPI and below Exam Const: General: no acute distress HENMT: Mouth: Yes moist mucous membranes Resp: Auscultation: diminished lung sounds Other: hyperinflated chest, almost absent breath sounds. Cardio: Rate: regular rate Rhythm: regular rhythm Heart sounds: no murmurs GI: Auscultation: normal bowel sounds Skin: General skin exam: normal color Neuro: Speech: normal speech Extrem: General: normal to inspection Psych: Mental Status: mental status grossly normal Objective Data Vital Signs Vital Signs: Vital Signs - 24 hr 11/02/19 20:02 11/02/19 20:04 11/02/19 20:14 Temperature Pulse Rate 96 101 H Respiratory Rate 18 18 Blood Pressure Pulse Oximetry 95 11/02/19 20:35 11/02/19 21:31 11/03/19 01:20 Temperature 36.7 C Pulse Rate 105 H 92 Respiratory Rate 16 25 H Blood Pressure 127/65 Pulse Oximetry 94 91 93 11/03/19 02:20 11/03/19 03:20 11/03/19 03:30 Temperature 36.7 C Pulse Rate 98 83 84 Respiratory Rate 18 18 18 Blood Pressure 133/69 Pulse Oximetry 92 91 11/03/19 04:00 11/03/19 04:40 11/03/19 07:49 Temperature 36.4 C Pulse Rate 89 84 90 Respiratory Rate 22 H 21 H 18 Blood Pressure 126/75 Pulse Oximetry 95 94 92 11/03/19 08:00 11/03/19 10:00 11/03/19 14:00 Temperature 37.0 C 37.0 C Pulse Rate 86 108 H 104 H Respiratory Rate 18 16 16 Blood Pressure 131/69 146/87 H Pulse Oximetry 92 90 93 11/03/19 15:42 11/03/19 15:50 11/03/19 15:53 Temperature Pulse Rate 97 90 90 Respiratory Rate 18 30 H 28 H Blood Pressure Pulse Oximetry 93 11/03/19 17:43 Temperature 37.0 C Pulse Rate 97 Respiratory Rate 14 Blood Pressure 135/79 Pulse Oximetry 90 Intake/Output Intake/Output: Intake & Output 10/31/19 11/01/19 11/02/19 11/03/19 23:59 23:59 23:59 23:59 Intake Total 1050 4810 3195 Output Total 423 275 0654 Balance 775 2750 1445 Meds/Results Medications: Active Medications Generic Name Dose Route Start Last Admin Trade N
[2019-11-03] MEDS: TRAMADOL HCL 50 MG TABLET PO (20:15)
[2019-11-03] MEDS: MELATONIN 3 MG TABLET PO (20:15)
[2019-11-04] VITALS (19 sets, daily range): BP systolic 122–138; BP diastolic 76–88; PULSE 85–107; RESP 16–26; TEMP 36.4–37.2; O2SAT 91–97
[2019-11-04] MEDS: TRAMADOL HCL 50 MG TABLET PO ×3 (04:06→20:43)
[2019-11-04] MEDS: CYCLOBENZAPRINE HCL 10 MG TABLET PO ×3 (04:07→20:43)
[2019-11-04] MEDS: ALBUTEROL SULFATE NEB 2.5 MG/0.5 ML INH 5 MG INHALATION ×4 (04:44→20:40)
[2019-11-04] MEDS: IPRATROPIUM BR 0.02% INH SOLN 0.5 MG/2.5 ML VIAL INHALATION ×4 (04:44→20:40)
[2019-11-04] MEDS: methylPREDNISolone SOD SUCC 125 MG VIAL 60 MG IV PUSH (09:43)
--- NOTE | 2019-11-04 13:00 | PM.IMPN ---
Progress Note: A&P Assessment and Plan (1) Acute and chronic respiratory failure: Qualifiers: Respiratory failure complication: hypoxia and hypercapnia Qualified Code(s): J96.21 - Acute and chronic respiratory failure with hypoxia; J96.22 - Acute and chronic respiratory failure with hypercapnia Code(s): J96.20 - Acute and chronic respiratory failure, unspecified whether with hypoxia or hypercapnia Status: Acute Assessment and Plan: require home BiPAP or trilogy Pulmonary has seen and agrees Continue on 1-2 L of oxygen while awake and BiPAP at 10/20 FiO2 30 rate 18 while sleeping Repeated admissions with hypercapnic respiratory failure (2) Acute exacerbation of chronic obstructive pulmonary disease (COPD): Code(s): J44.1 - Chronic obstructive pulmonary disease with (acute) exacerbation Status: Acute Assessment and Plan: Steroids IV today and po start 11/05,and bronchodilators and pulmonary toilet BiPAP (3) Tobacco dependence: Code(s): F17.200 - Nicotine dependence, unspecified, uncomplicated Status: Acute Assessment and Plan: Aware of need to quit Subjective Date/time seen: 11/04/19 13:00 Interval history: Date of visit 11/04. feels much better today. No cough. No wheezing. No chest pain. No GI or complaints. Tolerating his diet. Initially refused to wear BiPAP at home. But is starting to relent after discussing how near end-stage his COPD . He acknowledges that he must quit smoking. Wanting to go home once BiPAP has been established Has had recurrent admissions with hypercapnic respiratory failure so should qualify for bipap Exam Narrative: Exam Narrative: Blood pressure 126/78 pulse is 90saturating 94% on 1 L nasal cannula afebrile HEENT: EOMI, PERRL, NECK: Supple CHEST: Increased anteroposterior diameter with diminished breath sounds throughout, faint expiratory wheeze HEART: NL S1/S2, regular, no murmur ABDOMEN: BS+, soft, nontender, no mass, no bruits EXTREMITIES: No cyanosis, edema, or clubbing NEUROLOGIC: No focal deficits Objective Data Vital Signs Vital Signs: Vital Signs - 24 hr 11/03/19 14:00 11/03/19 15:42 11/03/19 15:50 Temperature 37.0 C Pulse Rate 104 H 97 90 Respiratory Rate 16 18 30 H Blood Pressure 146/87 H Pulse Oximetry 93 93 11/03/19 15:53 11/03/19 17:43 11/03/19 21:44 Temperature 37.0 C 37.2 C Pulse Rate 90 97 92 Respiratory Rate 28 H 14 18 Blood Pressure 135/79 123/74 Pulse Oximetry 90 95 11/03/19 22:23 11/03/19 22:28 11/03/19 22:30 Temperature Pulse Rate 87 89 Respiratory Rate 20 20 Blood Pressure Pulse Oximetry 92 11/03/19 22:39 11/04/19 02:00 11/04/19 04:00 Temperature 37.0 C 36.9 C Pulse Rate 94 85 94 Respiratory Rate 26 H 16 18 Blood Pressure 128/76 128/85 Pulse Oximetry 94 95 94 11/04/19 04:44 11/04/19 04:47 11/04/19 04:51 Temperature Pulse Rate 85 89 86 Respiratory Rate 20 24 H 20 Blood Pressure Pulse Oximetry 95 11/04/19 09:45 11/04/19 09:49 11/04/19 09:56 Temperature Pulse Rate 106 H 107 H Respiratory Rate 20 20 Blood Pressure Pulse Oximetry 94 11/04/19 10:00 Temperature 37.0 C Pulse Rate 87 Respiratory Rate 16 Blood Pressure 126/78 Pulse Oximetry 96 Intake/Output Intake/Output: Intake & Output 11/01/19 11/02/19 11/03/19 11/04/19 23:59 23:59 23:59 23:59 Intake Total 1050 4810 3195 1300 Output Total 687 779 1685 Balance 775 4360 1445 1300 Meds/Results Medications: Active Medications Generic Name Dose Route Start Last Admin Trade Name Aj PRN Reason Stop Dose Admin Acetaminophen 650 mg 11/01/19 18:03 11/03/19 06:28 Tylenol Tablet PO 650 mg Q4H PRN Administration Mild Pain (1-3) or Fever Albuterol 5 mg 11/01/19 20:00 11/04/19 09:44 Albuterol Sulf Neb 2.5mg/0.5ml INHALATION 5 mg Q6HRT OZIEL Administration Artificial Tears 1 drop 11/04/19 13:00 Ar
[2019-11-04] MEDS: MELATONIN 3 MG TABLET PO (20:43)
[2019-11-05] VITALS (15 sets, daily range): BP systolic 118–145; BP diastolic 77–88; PULSE 88–114; RESP 16–22; TEMP 36.3–36.8; O2SAT 91–97
[2019-11-05] MEDS: IPRATROPIUM BR 0.02% INH SOLN 0.5 MG/2.5 ML VIAL INHALATION ×4 (02:36→22:08)
[2019-11-05] MEDS: ALBUTEROL SULFATE NEB 2.5 MG/0.5 ML INH 5 MG INHALATION ×4 (02:37→22:08)
[2019-11-05] MEDS: TRAMADOL HCL 50 MG TABLET PO ×3 (04:51→21:09)
[2019-11-05] MEDS: CYCLOBENZAPRINE HCL 10 MG TABLET PO ×3 (04:51→21:09)
[2019-11-05] MEDS: predniSONE 40 MG, predniSONE 10 MG 50 MG PO (09:12)
--- NOTE | 2019-11-05 11:48 | PM.IMPN ---
Progress Note: A&P Assessment and Plan (1) Acute and chronic respiratory failure: Qualifiers: Respiratory failure complication: hypoxia and hypercapnia Qualified Code(s): J96.21 - Acute and chronic respiratory failure with hypoxia; J96.22 - Acute and chronic respiratory failure with hypercapnia Code(s): J96.20 - Acute and chronic respiratory failure, unspecified whether with hypoxia or hypercapnia Status: Acute Assessment and Plan: require home BiPAP or trilogy Pulmonary has seen and agrees Continue on 1-2 L of oxygen while awake and BiPAP at 10/20 FiO2 30 rate 18 while sleeping Repeated admissions with hypercapnic respiratory failure Responded well to steroids, updrafts, and BiPAP treatment (2) Acute exacerbation of chronic obstructive pulmonary disease (COPD): Code(s): J44.1 - Chronic obstructive pulmonary disease with (acute) exacerbation Status: Acute Assessment and Plan: Steroids started po today 11/05,and continued bronchodilators and pulmonary toilet BiPAP (3) Tobacco dependence: Code(s): F17.200 - Nicotine dependence, unspecified, uncomplicated Status: Acute Assessment and Plan: Aware of need to quit Subjective Date/time seen: 11/05/19 11:48 Interval history: Date of visit 11/05. feels much better today. Some cough . No wheezing. No chest pain. No GI or complaints. Tolerating his diet. Initially refused to wear BiPAP at home. But is starting to relent after discussing how near end-stage his COPD . He acknowledges that he must quit smoking. Wanting to go home once BiPAP has been established Has had recurrent admissions with hypercapnic respiratory failure so should qualify for bipap Exam Narrative: Exam Narrative: Blood pressure 118/82 pulse is 90 saturating 95% on 1 L nasal cannula afebrile HEENT: EOMI, PERRL, NECK: Supple CHEST: Increased anteroposterior diameter with diminished breath sounds throughout, faint expiratory wheeze HEART: NL S1/S2, regular, no murmur ABDOMEN: BS+, soft, nontender, no mass, no bruits EXTREMITIES: No cyanosis, edema, or clubbing NEUROLOGIC: No focal deficits Objective Data Vital Signs Vital Signs: Vital Signs - 24 hr 11/04/19 14:00 11/04/19 15:34 11/04/19 15:42 Temperature 37.2 C Pulse Rate 102 H 101 H 100 Respiratory Rate 20 20 20 Blood Pressure 138/88 Pulse Oximetry 94 11/04/19 18:00 11/04/19 20:40 11/04/19 20:41 Temperature 37.1 C Pulse Rate 105 H 92 Respiratory Rate 20 20 Blood Pressure 128/79 Pulse Oximetry 97 91 11/04/19 20:53 11/04/19 20:54 11/04/19 22:00 Temperature 36.4 C L Pulse Rate 96 98 92 Respiratory Rate 22 H 22 H 16 Blood Pressure 122/77 Pulse Oximetry 94 96 11/04/19 23:20 11/05/19 02:00 11/05/19 02:38 Temperature 36.3 C L Pulse Rate 88 89 96 Respiratory Rate 26 H 16 22 H Blood Pressure 119/85 Pulse Oximetry 94 96 11/05/19 02:39 11/05/19 02:50 11/05/19 05:56 Temperature 36.4 C Pulse Rate 98 88 Respiratory Rate 22 H 16 Blood Pressure 118/83 Pulse Oximetry 91 95 11/05/19 10:06 11/05/19 10:18 Temperature Pulse Rate 100 111 H Respiratory Rate 22 H 20 Blood Pressure Pulse Oximetry 92 Intake/Output Intake/Output: Intake & Output 11/02/19 11/03/19 11/04/19 11/05/19 23:59 23:59 23:59 23:59 Intake Total 4810 3195 3220 1115 Output Total 450 1750 1950 1500 Balance 4360 1445 1270 -385 Meds/Results Medications: Active Medications Generic Name Dose Route Start Last Admin Trade Name Freq PRN Reason Stop Dose Admin Acetaminophen 650 mg 11/01/19 18:03 11/03/19 06:28 Tylenol Tablet PO 650 mg Q4H PRN Administration Mild Pain (1-3) or Fever Albuterol 5 mg 11/01/19 20:00 11/05/19 10:03 Albuterol Sulf Neb 2.5mg/0.5ml INHALATION 5 mg Q6HRT OZIEL Administration Artificial Tears 1 drop 11/04/19 13:00 Artificial Tears EACH EYE QID PRN Dry Eye(s) B
[2019-11-05] MEDS: HYDROCORTISONE 1% 30 GM CREAM 1 APPLIC TOPICAL ×3 (14:04→22:00)
--- NOTE | 2019-11-05 15:22 | PCRCNOTE ---
Orders and paperwork for Trilogy faxed to [facility]. Waiting on additional progress notes. Will fax when received.
--- NOTE | 2019-11-05 19:58 | PM.PNPUL ---
Progress Note: A&P Assessment and Plan (1) Acute and chronic respiratory failure: Qualifiers: Respiratory failure complication: hypoxia and hypercapnia Qualified Code(s): J96.21 - Acute and chronic respiratory failure with hypoxia; J96.22 - Acute and chronic respiratory failure with hypercapnia Code(s): J96.20 - Acute and chronic respiratory failure, unspecified whether with hypoxia or hypercapnia Status: Acute Assessment and Plan: I am ordering Trilogy for daytime use and nocturnal use to treat chronic respiratory failure due to COPD. BiPAP has been rtied and has been shown not to be effective. He relapsed and required a readmission a few days after discharge. This is necessary for his disease process and to maintain health. (2) Acute exacerbation of chronic obstructive pulmonary disease (COPD): Code(s): J44.1 - Chronic obstructive pulmonary disease with (acute) exacerbation Status: Acute Assessment and Plan: Responded to treatment including steroids, bronchodilators, controller meds. (3) Tobacco dependence: Code(s): F17.200 - Nicotine dependence, unspecified, uncomplicated Status: Acute Assessment and Plan: Essential to maintaining his health and remaining out of the hospital. Subjective Date/time seen: 11/05/19 19:59 This 54 yo man is seen in follow up for COPD exacerbation, acute on chronic respiratory failure. Feeling better compared to admission. Coughing less, less short of breath. Review of Systems Review of Systems: All systems reviewed & are unremarkable except as noted in HPI and below Exam Narrative: Exam Narrative: Const General: no acute distress HENMT Mouth: Yes moist mucous membranes Resp Auscultation: diminished lung sounds Other: hyperinflated chest, almost absent breath sounds. Cardio Rate: regular rate Rhythm: regular rhythm Heart sounds: no murmurs GI Auscultation: normal bowel sounds Skin General skin exam: normal color Neuro Speech: normal speech Extrem General: normal to inspection Psych Mental Status: mental status grossly normal Objective Data Vital Signs Vital Signs: Vital Signs - 24 hr 11/04/19 20:40 11/04/19 20:41 11/04/19 20:53 Temperature Pulse Rate 92 96 Respiratory Rate 20 22 H Blood Pressure Pulse Oximetry 91 11/04/19 20:54 11/04/19 22:00 11/04/19 23:20 Temperature 36.4 C L Pulse Rate 98 92 88 Respiratory Rate 22 H 16 26 H Blood Pressure 122/77 Pulse Oximetry 94 96 94 11/05/19 02:00 11/05/19 02:38 11/05/19 02:39 Temperature 36.3 C L Pulse Rate 89 96 Respiratory Rate 16 22 H Blood Pressure 119/85 Pulse Oximetry 96 91 11/05/19 02:50 11/05/19 05:56 11/05/19 10:06 Temperature 36.4 C Pulse Rate 98 88 100 Respiratory Rate 22 H 16 22 H Blood Pressure 118/83 Pulse Oximetry 95 92 11/05/19 10:18 11/05/19 14:00 11/05/19 15:28 Temperature 36.6 C Pulse Rate 111 H 104 H 110 H Respiratory Rate 20 16 20 Blood Pressure 139/88 Pulse Oximetry 92 11/05/19 15:36 Temperature Pulse Rate 108 H Respiratory Rate 20 Blood Pressure Pulse Oximetry Intake/Output Intake/Output: Intake & Output 11/02/19 11/03/19 11/04/19 11/05/19 23:59 23:59 23:59 23:59 Intake Total 4810 3195 3220 2435 Output Total 450 1750 1950 2375 Balance 4360 1445 1270 60 Meds/Results Medications: Active Medications Generic Name Dose Route Start Last Admin Trade Name Freq PRN Reason Stop Dose Admin Acetaminophen 650 mg 11/01/19 18:03 11/03/19 06:28 Tylenol Tablet PO 650 mg Q4H PRN Administration Mild Pain (1-3) or Fever Albuterol 5 mg 11/01/19 20:00 11/05/19 15:25 Albuterol Sulf Neb 2.5mg/0.5ml INHALATION 5 mg Q6HRT OZIEL Administration Artificial Tears 1 drop 11/04/19 13:00 Artificial Tears EACH EYE QID PRN Dry Eye(s) Budesonide/Formoterol Fumarate 2 puff 11/03/19 08:00 11/05/19 10:03 Symbicort 160-4.5 Mcg (*Sp)
[2019-11-05] MEDS: MELATONIN 3 MG TABLET PO (21:09)
[2019-11-05] MEDS: ENOXAPARIN 40 MG/0.4 ML SYRINGE SUB-Q (21:26)
[2019-11-06] VITALS (13 sets, daily range): BP systolic 128–135; BP diastolic 70–79; PULSE 99–118; RESP 16–20; TEMP 35.8–37.4; O2SAT 91–94
[2019-11-06] MEDS: IPRATROPIUM BR 0.02% INH SOLN 0.5 MG/2.5 ML VIAL INHALATION ×4 (03:03→19:02)
[2019-11-06] MEDS: ALBUTEROL SULFATE NEB 2.5 MG/0.5 ML INH 5 MG INHALATION ×4 (03:03→19:02)
[2019-11-06] MEDS: TRAMADOL HCL 50 MG TABLET PO ×2 (04:38→16:36)
[2019-11-06] MEDS: CYCLOBENZAPRINE HCL 10 MG TABLET PO ×2 (04:38→16:37)
[2019-11-06 05:52] LABS: Basophils Percent Auto 0.5 % (0.2-1.2); Blood Urea Nitrogen 14 mg/dL (9-20); Calcium 8.5 mg/dL (8.4-10.2); Carbon Dioxide > 40 mmol/L (22-30); Chloride 87 mmol/L (98-107); Estimated CRCL calculation 132 ml/min; Estimated Glomerular Filt Rate > 60; Glucose 105 mg/dL (75-110); Hematocrit 41.2 % (42.0-52.0); Hemoglobin 12.6 g/dL (14.0-18.0); Immature Granulocyte Absolute 0.39 K/mm3 (0.00-0.031); Immature Granulocyte Percent A 4.9 % (0-0.5); Lymphocytes Percent Auto 11.3 % (18.3-44.2); Mean Corpuscular HGB Conc 30.6 g/dl (32-36); Mean Corpuscular Hemoglobin 30.4 pg (26-34); Mean Corpuscular Volume 99.3 fl (80-100); Mean Platelet Volume 10.8 fl (7.4-10.4); Monocytes Absolute Auto 0.6 K/mm3 (0.1-0.6); Monocytes Percent Auto 7.3 % (2.6-8.5); Platelet Count Result 189 k/mm3 (150-375); Potassium 3.5 mmol/L (3.4-5.0); Red Blood Count 4.15 M/mm3 (4.6-6.20); Red Cell Distribution Width 14.7 % (11.5-14.5); Sodium 135 mmol/L (137-145); White Blood Count 7.9 K/mm3 (4.5-10.0)
[2019-11-06] MEDS: HYDROCORTISONE 1% 30 GM CREAM 1 APPLIC TOPICAL ×2 (08:45→20:49)
[2019-11-06] MEDS: predniSONE 40 MG, predniSONE 10 MG 50 MG PO (08:45)
--- NOTE | 2019-11-06 14:12 | PM.PNPUL ---
Progress Note: A&P Assessment and Plan (1) Tobacco dependence: Code(s): F17.200 - Nicotine dependence, unspecified, uncomplicated Status: Acute (2) Acute and chronic respiratory failure: Qualifiers: Respiratory failure complication: hypoxia and hypercapnia Qualified Code(s): J96.21 - Acute and chronic respiratory failure with hypoxia; J96.22 - Acute and chronic respiratory failure with hypercapnia Code(s): J96.20 - Acute and chronic respiratory failure, unspecified whether with hypoxia or hypercapnia Status: Acute (3) Acute exacerbation of chronic obstructive pulmonary disease (COPD): Code(s): J44.1 - Chronic obstructive pulmonary disease with (acute) exacerbation Status: Acute (4) Acute on chronic respiratory failure with hypercapnia: Code(s): J96.22 - Acute and chronic respiratory failure with hypercapnia Status: Acute Assessment and Plan: - change BIPAP to 20/4 with 30% FiO2 - home O2 evaluation - can go home once Trilogy Machine or BIPAP machine is set up for home - encouraged to quit smoking as this is leading to his recurrent admissions Time Spent With Patient Time with patient: 15 - 25 minutes Subjective Date/time seen: 11/06/19 14:12 54 y/o male with severe COPD admitted with acute on chronic hypercapnic respiratory failure, continues to use tabacco. No signs of current infection. Can go home with Trilogy machine or BIPAP. I just changed settings on BIPAP to 20/4 to wear QHS and PRN during the day. Review of Systems Review of Systems: All systems reviewed & are unremarkable except as noted in HPI and below Exam Const: General: comfortable and no acute distress HENMT: Mouth: Yes moist mucous membranes Neck: Neck: no JVD Resp: Auscultation: no crackles, no wheezes and diminished lung sounds Cardio: Rate: regular rate Rhythm: regular rhythm Heart sounds: no gallops and no murmurs GI: Auscultation: normal bowel sounds Skin: General skin exam: normal color Extrem: General: normal to inspection, no edema and no pedal edema Objective Data Vital Signs Vital Signs: Vital Signs - 24 hr 11/05/19 15:28 11/05/19 15:36 11/05/19 20:00 Temperature Pulse Rate 110 H 108 H 103 H Respiratory Rate 20 20 18 Blood Pressure Pulse Oximetry 97 11/05/19 22:00 11/05/19 22:13 11/05/19 22:15 Temperature 36.8 C Pulse Rate 114 H 103 H 103 H Respiratory Rate 16 18 18 Blood Pressure 145/77 H Pulse Oximetry 94 97 11/05/19 22:17 11/06/19 02:00 11/06/19 03:04 Temperature 37.1 C Pulse Rate 106 H 102 H 99 Respiratory Rate 18 16 18 Blood Pressure 128/70 Pulse Oximetry 94 11/06/19 03:09 11/06/19 06:00 11/06/19 10:33 Temperature 37.1 C Pulse Rate 100 100 101 H Respiratory Rate 18 16 18 Blood Pressure 135/77 Pulse Oximetry 94 94 11/06/19 10:44 Temperature Pulse Rate 107 H Respiratory Rate 18 Blood Pressure Pulse Oximetry Intake/Output Intake/Output: Intake & Output 11/03/19 11/04/19 11/05/19 11/06/19 23:59 23:59 23:59 23:59 Intake Total 3195 3220 2435 1660 Output Total 1750 1950 2375 1300 Balance 1445 1270 60 360 Meds/Results Medications: Active Medications Generic Name Dose Route Start Last Admin Trade Name Freq PRN Reason Stop Dose Admin Acetaminophen 650 mg 11/01/19 18:03 11/03/19 06:28 Tylenol Tablet PO 650 mg Q4H PRN Administration Mild Pain (1-3) or Fever Albuterol 5 mg 11/01/19 20:00 11/06/19 10:31 Albuterol Sulf Neb 2.5mg/0.5ml INHALATION 5 mg Q6HRT OZIEL Administration Artificial Tears 1 drop 11/04/19 13:00 Artificial Tears EACH EYE QID PRN Dry Eye(s) Budesonide/Formoterol Fumarate 2 puff 11/03/19 08:00 11/05/19 22:08 Symbicort 160-4.5 Mcg (*Sp) Inhaler INHALATION 2 puff Q12HRT OZIEL Administration Cyclobenzaprine HCl 10 mg 11/02/19 22:34 11/06/19 04:38 Flexeril PO 10 mg Q8H PRN Administration Muscle Spasm
--- NOTE | 2019-11-06 15:46 | PCRCNOTE ---
Awaiting insurance authorization for Trilogy machine. [facility] has all necessary paperwork.
--- NOTE | 2019-11-06 18:01 | PM.IMPN ---
Progress Note: A&P Assessment and Plan (1) Acute and chronic respiratory failure: Qualifiers: Respiratory failure complication: hypoxia and hypercapnia Qualified Code(s): J96.21 - Acute and chronic respiratory failure with hypoxia; J96.22 - Acute and chronic respiratory failure with hypercapnia Code(s): J96.20 - Acute and chronic respiratory failure, unspecified whether with hypoxia or hypercapnia Status: Acute Assessment and Plan: require home BiPAP or trilogy Pulmonary has seen and agrees Continue on 1-2 L of oxygen while awake and BiPAP at 10/20 FiO2 30 rate 18 while sleeping Repeated admissions with hypercapnic respiratory failure Responded well to steroids, updrafts, and BiPAP treatment Anticipate discharge 11/07. (2) Acute exacerbation of chronic obstructive pulmonary disease (COPD): Code(s): J44.1 - Chronic obstructive pulmonary disease with (acute) exacerbation Status: Acute Assessment and Plan: Steroids started po today 11/05,and continued bronchodilators and pulmonary toilet BiPAP (3) Tobacco dependence: Code(s): F17.200 - Nicotine dependence, unspecified, uncomplicated Status: Acute Assessment and Plan: Aware of need to quit and discussed again today Subjective Date/time seen: 11/06/19 18:01 Interval history: Tolerating diet. Walking laps around the nurse's station. Tolerating BiPAP. Awaiting trilogy machine delivery to home. Review of Systems Review of Systems: All systems reviewed & are unremarkable except as noted in HPI and below Exam Narrative: Exam Narrative: Blood pressure 118/82 pulse is 90 saturating 95% on 1 L nasal cannula afebrile HEENT: EOMI, PERRL, NECK: Supple CHEST: Increased anteroposterior diameter with diminished breath sounds throughout, prolonged expiratory phase HEART: NL S1/S2, regular, no murmur ABDOMEN: BS+, soft, nontender, no mass, no bruits EXTREMITIES: No cyanosis, edema, or clubbing NEUROLOGIC: No focal deficits Objective Data Vital Signs Vital Signs: Vital Signs - 24 hr 11/05/19 20:00 11/05/19 22:00 11/05/19 22:13 Temperature 98.2 F Pulse Rate 103 H 114 H 103 H Respiratory Rate 18 16 18 Blood Pressure 145/77 H Pulse Oximetry 97 94 11/05/19 22:15 11/05/19 22:17 11/06/19 02:00 Temperature 98.7 F Pulse Rate 103 H 106 H 102 H Respiratory Rate 18 18 16 Blood Pressure 128/70 Pulse Oximetry 97 94 11/06/19 03:04 11/06/19 03:09 11/06/19 06:00 Temperature 98.7 F Pulse Rate 99 100 100 Respiratory Rate 18 18 16 Blood Pressure 135/77 Pulse Oximetry 94 11/06/19 10:33 11/06/19 10:44 11/06/19 14:00 Temperature 99.3 F Pulse Rate 101 H 107 H 113 H Respiratory Rate 18 18 20 Blood Pressure 135/77 Pulse Oximetry 94 91 11/06/19 15:15 11/06/19 15:27 Temperature Pulse Rate 110 H 112 H Respiratory Rate 20 20 Blood Pressure Pulse Oximetry Intake/Output Intake/Output: Intake & Output 11/03/19 11/04/19 11/05/19 11/06/19 23:59 23:59 23:59 23:59 Intake Total 3195 3220 2435 2160 Output Total 1750 1950 2375 2950 Balance 1445 1270 60 -790 Meds/Results Medications: Active Medications Generic Name Dose Route Start Last Admin Trade Name Freq PRN Reason Stop Dose Admin Acetaminophen 650 mg 11/01/19 18:03 11/03/19 06:28 Tylenol Tablet PO 650 mg Q4H PRN Administration Mild Pain (1-3) or Fever Albuterol 5 mg 11/01/19 20:00 11/06/19 15:15 Albuterol Sulf Neb 2.5mg/0.5ml INHALATION 5 mg Q6HRT OZIEL Administration Artificial Tears 1 drop 11/04/19 13:00 Artificial Tears EACH EYE QID PRN Dry Eye(s) Budesonide/Formoterol Fumarate 2 puff 11/03/19 08:00 11/06/19 15:17 Symbicort 160-4.5 Mcg (*Sp) Inhaler INHALATION 2 puff Q12HRT OZIEL Administration Cyclobenzaprine HCl 10 mg 11/02/19 22:34 11/06/19 16:37 Flexeril PO 10 mg Q8H PRN Administration Muscle Spasm Enoxaparin Sodium
[2019-11-06] MEDS: ENOXAPARIN 40 MG/0.4 ML SYRINGE SUB-Q (20:49)
[2019-11-06] MEDS: MELATONIN 3 MG TABLET PO (20:51)
[2019-11-07] VITALS (10 sets, daily range): BP systolic 124–136; BP diastolic 80–88; PULSE 99–118; RESP 18–24; TEMP 35.9–36.3; O2SAT 90–96
[2019-11-07] MEDS: TRAMADOL HCL 50 MG TABLET PO ×3 (00:29→14:05)
[2019-11-07] MEDS: CYCLOBENZAPRINE HCL 10 MG TABLET PO ×2 (00:29→08:54)
[2019-11-07] MEDS: IPRATROPIUM BR 0.02% INH SOLN 0.5 MG/2.5 ML VIAL INHALATION ×3 (01:16→15:19)
[2019-11-07] MEDS: ALBUTEROL SULFATE NEB 2.5 MG/0.5 ML INH 5 MG INHALATION ×3 (01:16→15:19)
[2019-11-07] MEDS: predniSONE 40 MG, predniSONE 10 MG 50 MG PO (08:41)
[2019-11-07] MEDS: HYDROCORTISONE 1% 30 GM CREAM 1 APPLIC TOPICAL (08:43)
--- NOTE | 2019-11-07 09:56 | PM.DS ---
DS: Diagnosis Admitting Diagnosis Admitting Diagnosis: Acute and chronic respiratory failure, unspecified whether with hypoxia or hypercapnia Discharge Diagnosis (1) Acute and chronic respiratory failure: Qualifiers: Respiratory failure complication: hypoxia and hypercapnia Qualified Code(s): J96.21 - Acute and chronic respiratory failure with hypoxia; J96.22 - Acute and chronic respiratory failure with hypercapnia Code(s): J96.20 - Acute and chronic respiratory failure, unspecified whether with hypoxia or hypercapnia Status: Acute Assessment and Plan: require home BiPAP or trilogy Pulmonary has seen and agrees Continue on 1-2 L of oxygen while awake and BiPAP at 10/20 FiO2 30 rate 18 while sleeping Repeated admissions with hypercapnic respiratory failure Responded well to steroids, updrafts, and BiPAP treatment 11/07 home with steroid taper, awaiting delivery of Trilogy (2) Acute exacerbation of chronic obstructive pulmonary disease (COPD): Code(s): J44.1 - Chronic obstructive pulmonary disease with (acute) exacerbation Status: Acute Assessment and Plan: Steroids started po 11/05,and continued bronchodilators and pulmonary toilet BiPAP (3) Tobacco dependence: Code(s): F17.200 - Nicotine dependence, unspecified, uncomplicated Status: Acute Assessment and Plan: Aware of need to quit and discussed again today DS: Summary Hospital Course Reason for hospitalization: Dyspnea Hospital Course: 54-year-old smoker with severe COPD and recurrent respiratory failure was admitted for increasing cough and dyspnea. Responded well BiPAP, steroids, bronchodilators, pulmonary toilet. Was seen by pulmonology who recommended home trilogy given his advanced COPD multiple episodes of respiratory failure and ongoing carbon dioxide retention. He was of a able to wean from continuous BiPAP to BiPAP at night and while sleeping and nasal cannula oxygen while awake and with exertion. Status at Discharge Functional status at discharge: independent ambulation Overall status at discharge: patient is back to baseline Time Spent with Patient Time attestation: Total time spent providing and/or coordinating discharge services: 35 min Exam Narrative: Exam Narrative: Blood pressure 118/82 pulse is 90 saturating 95% on 1 L nasal cannula afebrile HEENT: EOMI, PERRL, NECK: Supple CHEST: Increased anteroposterior diameter with diminished breath sounds throughout, prolonged expiratory phase HEART: NL S1/S2, regular, no murmur ABDOMEN: BS+, soft, nontender, no mass, no bruits EXTREMITIES: No cyanosis, edema, or clubbing NEUROLOGIC: No focal deficits Discharge Plan Discharge Attending physician on discharge: Darius Ennis Consulting providers: Marilin Shine ; Brendan Blackman Discharging Clinician: Darius Ennis Patient Disposition: Home, Self-Care Activity: as tolerated Diet: regular Discharge Instructions: Wear oxygen continuously at 1 liter/minute. When you receive your trilogy machine use that when sleeping. Patient Instructions: Antibiotic Form, How to Stop Smoking (DC), Advance Directives (DC), COPD (Chronic Obstructive Pulmonary Disease) (DC) Stand Alone Forms: General Discharge Information Follow-up/Referrals: Marilin Shine MD [Physician] - 1 Week Brendan Blackman MD [Physician] - 1 Week Discharge Medications: New acetaminophen [Mapap (acetaminophen)] 325 mg Tablet 650 mg PO Q4H PRN (Reason: Mild Pain (1-3) Or Fever) Qty: 0 RF: 0 budesonide-formoterol [Symbicort] 160-4.5 mcg/actuation Hfa Aerosol Inhaler 2 puff inhalation Q12HRT Qty: 1 RF: 0 polyethylene glycol 3350 [Miralax] 17 gram Powder In Packet 17 g PO BID PRN (Reason: Constipation) Qty: 30 RF: 0 Continued nicotine [Nicoderm CQ] 21 mg/24 hr Patch 24 Hour 1 patch transdermal QAM Qty: 15 RF: 0 ipratropium-albuterol 0.5 mg-3 mg(2.5 mg base)/3 mL
--- NOTE | 2019-11-07 14:37 | PM.PNPUL ---
Progress Note: A&P Assessment and Plan (1) Acute and chronic respiratory failure: Qualifiers: Respiratory failure complication: hypoxia and hypercapnia Qualified Code(s): J96.21 - Acute and chronic respiratory failure with hypoxia; J96.22 - Acute and chronic respiratory failure with hypercapnia Code(s): J96.20 - Acute and chronic respiratory failure, unspecified whether with hypoxia or hypercapnia Status: Acute Assessment and Plan: - change BIPAP to 20/4, back up rate of 16 and 30% FiO2 - needs home NIV machine - outpatient sleep study ordered (2) Acute exacerbation of chronic obstructive pulmonary disease (COPD): Code(s): J44.1 - Chronic obstructive pulmonary disease with (acute) exacerbation Status: Acute Assessment and Plan: - agree with current bronchodilator regimen which he can go home with - PFT ordered for outpatient in one month (3) Tobacco dependence: Code(s): F17.200 - Nicotine dependence, unspecified, uncomplicated Status: Acute (4) Acute on chronic respiratory failure with hypercapnia: Code(s): J96.22 - Acute and chronic respiratory failure with hypercapnia Status: Acute Assessment and Plan: - change BIPAP to 20/4 with 30% FiO2 - home O2 evaluation - can go home once Trilogy Machine or BIPAP machine is set up for home - encouraged to quit smoking as this is leading to his recurrent admissions Time Spent With Patient Time with patient: 15 - 25 minutes Subjective Date/time seen: 11/07/19 14:37 Interval history: Feeling better, may go home today. I still see his BIPAP set to 20/10 but yesterday I put in an order for 20/4. He should go home with 20/4, back rate of 16 and 30% FiO2 Review of Systems Review of Systems: All systems reviewed & are unremarkable except as noted in HPI and below Exam Const: General: comfortable and no acute distress HENMT: Mouth: Yes moist mucous membranes Neck: Neck: supple and no JVD Resp: Auscultation: clear to auscultation bilaterally and diminished lung sounds Cardio: Rate: regular rate Rhythm: regular rhythm GI: Auscultation: normal bowel sounds Skin: General skin exam: normal color Extrem: General: normal to inspection, no edema and no pedal edema Psych: Affect: normal affect Objective Data Vital Signs Vital Signs: Vital Signs - 24 hr 11/06/19 15:15 11/06/19 15:27 11/06/19 19:03 Temperature Pulse Rate 110 H 112 H 118 H Respiratory Rate 20 20 20 Blood Pressure Pulse Oximetry 11/06/19 19:05 11/06/19 19:13 11/06/19 22:39 Temperature 35.8 C L Pulse Rate 115 H 113 H Respiratory Rate 20 20 Blood Pressure 135/79 Pulse Oximetry 94 92 11/07/19 01:17 11/07/19 01:18 11/07/19 01:22 Temperature Pulse Rate 99 99 102 H Respiratory Rate 20 18 20 Blood Pressure Pulse Oximetry 96 11/07/19 06:26 11/07/19 08:48 11/07/19 08:50 Temperature 35.9 C L Pulse Rate 102 H 100 Respiratory Rate 20 18 Blood Pressure 124/80 Pulse Oximetry 93 90 11/07/19 08:54 Temperature Pulse Rate 105 H Respiratory Rate 18 Blood Pressure Pulse Oximetry Intake/Output Intake/Output: Intake & Output 11/04/19 11/05/19 11/06/19 11/07/19 23:59 23:59 23:59 23:59 Intake Total 3220 2435 2160 240 Output Total 1950 2375 2950 1250 Balance 1270 60 -790 -1010 Meds/Results Medications: Active Medications Generic Name Dose Route Start Last Admin Trade Name Freq PRN Reason Stop Dose Admin Acetaminophen 650 mg 11/01/19 18:03 11/03/19 06:28 Tylenol Tablet PO 650 mg Q4H PRN Administration Mild Pain (1-3) or Fever Albuterol 5 mg 11/01/19 20:00 11/07/19 08:47 Albuterol Sulf Neb 2.5mg/0.5ml INHALATION 5 mg Q6HRT OZIEL Administration Artificial Tears 1 drop 11/04/19 13:00 Artificial Tears EACH EYE QID PRN Dry Eye(s) Budesonide/Formoterol Fumarate 2 puff 11/03/19 08:00 11/07/19 08:47 Symbicort 160-4.5 Mcg (
--- NOTE | 2019-11-07 15:14 | PC.NURSE ---
Called Dr. Efrain Lopez and made him aware that Trilogy is still pending through insurance. He is okay for discharge from his standpoint and said patient is okay without Trilogy for a few days. He stated he ordered an outpatient sleep study.
--- NOTE | 2019-11-07 15:33 | PC.NURSE ---
On 11/07/19, the undergraduate internship Herman Mendoza, provided care and completed [facility] documentation on this patient. I have reviewed the student's documentation and agree with the findings.
== END 2019-11-07 16:20 | disposition home or self-care (01) | DRG 140 ==
LOC: ANHED 17:51 → ANHIMU 22:11 → ANH2MED 11-05 11:59 → ANHIMU 11-09 12:23
PROVIDERS: Physician Assistant; Admitting Provider Internal Medicine; Emergency Provider Emergency Medicine; Visit Provider Internal Medicine
DX: J44.1 Chronic obstructive pulmonary disease with (acute) exacerbation (principal); J96.22 Acute and chronic respiratory failure with hypercapnia; J96.21 Acute and chronic respiratory failure with hypoxia; Z23 Encounter for immunization; F17.210 Nicotine dependence, cigarettes, uncomplicated
CPT/HCPCS: 36415; 36600; 71045; 80048; 82375; 82805; 83050; 85025; 85027; 87040; 90471; 90686; 93005; 94003; 94640; 96365; 96366; 99291; A9270; G0008; J1650; J2930; J3475; J7030; J7512

== ENCOUNTER 2019-11-13 17:06 | Inpatient (IN) | payer MEDICAID, SELFPAY ==
[2019-11-13] VITALS (12 sets, daily range): BP systolic 96–130; BP diastolic 58–94; PULSE 73–126; RESP 18–33; TEMP 36.7–37; O2SAT 61–98
--- NOTE | ~2019-11-13 | XR_ITS ---
EXAMINATION: XR chest 1V portable DATE: 11/13/2019 21:04 INDICATION: Shortness of breath. TECHNIQUE: frontal view of the chest was obtained. COMPARISON: Chest radiograph dated 11/01/2019 FINDINGS: Mild hyperexpansion of the lungs. Unchanged minimal linear atelectasis/scarring at the left lung base . No new airspace opacities, pulmonary edema, pleural effusion or pneumothorax. The cardiomediastinal silhouette is normal. Mild mid thoracic dextrocurvature with mild spondylosis. IMPRESSION: 1. Mild hyperexpansion of lungs consistent with COPD. No other acute cardiopulmonary disease. Reviewed, dictated and finalized at location A. GE DIRECTOR IMPRESSION: 1. Mild hyperexpansion of lungs consistent with COPD. No other acute cardiopulm onary disease.
--- NOTE | 2019-11-13 17:24 | ED.SOB ---
HPI - SOB/Dyspnea General Chief Complaint: Shortness of Breath/Dyspnea Stated Complaint: sob Time Seen by Provider: 11/13/19 17:23 Source: patient and RN notes reviewed Mode of arrival: EMS Limitations: no limitations History of Present Illness HPI Narrative: Pt is a 54 y/o male who presents to the ED, via EMS from home, with c/o SOB that began last week. Pt was seen here last week and d/c home. Pt has been unable to get his prescriptions for an inhaler filled. Pt went to his PCP today and received a pneumonia shot. Pt denies having medications at home for his COPD. Pt states that he did two breathing tx two days ago (11/11/19) with no relief of his sx. Pt's O2 saturation was at 60% while on 6L of O2. He states that his oxygen saturation normally is at 88%. Pt is on 1L of O2 while resting and 2L of O2 while he is active. Pt reports a dry cough, headache, and chronic back pain, but denies BLE edema and chest pain. MD elicited complaint: shortness of breath Pertinent past history: COPD Onset (ago): week(s) (1) Context: medication noncompliance (d/t insurance) Timing: constant Relieving factors: nothing Known history of: COPD Associated symptoms: cough (dry) and other (chronic back pain, headache) Related Data Home oxygen amount: other (1L while resting and 2L when active) Allergies Allergy/AdvReac Type Severity Reaction Status Date / Time No Known Allergies Allergy Mild Unverified 11/01/19 16:04 Review of Systems Review of Systems: All systems reviewed & are unremarkable except as noted in HPI and below Cardiovascular: Cardiovascular: Denies chest pain and Denies leg edema (bilaterally) Respiratory: Respiratory: Reports cough (dry) and Reports dyspnea Musculoskeletal: Musculoskeletal: Reports back pain (chronic) Neurologic: Reports headache(s) [facility] Past Medical History Medical History (Updated 11/13/19 @ 18:59 by Sascha Mcpherson MD) Acute on chronic respiratory failure with hypercapnia Acute respiratory failure with hypoxia and hypercapnia Arthritis COPD (chronic obstructive pulmonary disease) Scoliosis Tobacco dependence Surgical History Surgical History (Updated 11/01/19 @ 22:10 by Suzette Merida PA-C) History of surgery on right wrist Social History Social History (Updated 11/02/19 @ 02:50 by Suzette Merida PA-C) Social History: He is currently living in [place]. He is originally from [place], [place] and intends to move back there soon. 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 He has smoked up to 2 packs of cigarettes per day for the last 40 years but seems motivated to quit smoking. His sister apparently has severe end-stage COPD, and he does not want to get to that point. He does not use E cigarettes. He does smoke marijuana most days. He denies alcohol abuse. He wishes to be a full code. Smoking packs per day: 2 Smoking cigarettes per day: 40.0 Years smoked: 40 Smoking pack-years: 80.00 Smoking status: Current every day smoker Tobacco type: cigarettes Additional smoking assessment comments: recently cut back to 2 cigarettes daily Alcohol intake: former Substance use: current Substance use type: marijuana Gender identity (if verbalized by the patient): Male Spiritual care concerns: No Agree to blood products: Yes Exam Const: General: ill appearing chronically Nutritional Appearance: thin Orientation/consciousness: patient oriented x3 (alert) and Other orientation findings (Alert) Limitations: no limitations HENMT: Head: normocephalic and atraumatic Ears: external ears normal General nose exam: No nasal discharge present and no epistaxis Face and sinus: face symmetric Mouth: Yes lip normal, Yes tongue normal and Yes moist mucous membranes Throat: other (No exudate, no erythema) Eyes: Conjunctivae: conjunctivae normal Sclera: sclerae normal EOM: EOMs intact bilaterally Neck: Neck: full ROM, no lymphadenopathy and supple Thyroid: thyroid normal Chest: Chest pa
--- NOTE | 2019-11-13 17:39 | ECG_ITS ---
Measurements Intervals [place] Rate: 121 P: 79 MA: 141 QRS: 100 QRSD: 73 T: 71 QT: 272 QTc: 386 Interpretive Statements SINUS TACHYCARDIA VENTRICULAR PREMATURE COMPLEX AND FREQUENT ATRIAL PREMATURE COMPLEXES RIGHT AXIS DEVIATION DELAYED PRECORDIAL R/S TRANSITION BASELINE ARTIFACT- AVR, AVL, AVF, V2-V4 ABNORMAL ECG Electronically Signed On 11-14-2019 6:57:50 [employer] by Ash Salcedo D.O.
[2019-11-13] MEDS: LACTATED RINGERS 1,000 ML 999 ML IV CONT (17:40)
[2019-11-13] MEDS: IPRATROPIUM BR 0.02% INH SOLN 0.5 MG/2.5 ML VIAL INHALATION (17:41)
[2019-11-13] MEDS: ALBUTEROL SULFATE NEB 2.5 MG/0.5 ML INH 15 MG INHALATION (17:41)
[2019-11-13 17:46] LABS: Basophils Percent Auto 0.2 % (0.2-1.2); Hematocrit 52.6 % (42.0-52.0); Hemoglobin 15.9 g/dL (14.0-18.0); Immature Granulocyte Absolute 0.07 K/mm3 (0.00-0.031); Immature Granulocyte Percent A 0.5 % (0-0.5); Lymphocytes Absolute Auto 0.73 K/mm3 (0.9-3.2); Lymphocytes Percent Auto 5.7 % (18.3-44.2); Mean Corpuscular HGB Conc 30.2 g/dl (32-36); Mean Corpuscular Hemoglobin 30.9 pg (26-34); Mean Corpuscular Volume 102.1 fl (80-100); Mean Platelet Volume 10.7 fl (7.4-10.4); Monocytes Absolute Auto 1.3 K/mm3 (0.1-0.6); Monocytes Percent Auto 9.7 % (2.6-8.5); Neutrophils Absolute Auto 10.8 K/mm3 (1.3-6.7); Neutrophils Percent Auto 83.9 % (45.5-73.1); Platelet Count Result 236 k/mm3 (150-375); Red Blood Count 5.15 M/mm3 (4.6-6.20); White Blood Count 12.9 K/mm3 (4.5-10.0)
[2019-11-13 17:47] LABS: Base Excess ABG 11.7 mEq/l (+/-2.0); Fractional Inspired Oxygen 40 %; HCO3 ABG 42.8 mEq/l (22.0-26.0); Oxygen Content ABG 19.5 %vol (16.0-22.0); Oxygen Saturation ABG 91.3 % (95.0-100.0); Oxyhemoglobin 90.7 % THb (90.0-100.0); PO2 ABG 70.6 mmHg (80.0-100.0); PO2 FiO2 Ratio Arterial Blood 1.76 %; Total Hemoglobin 15.3 g/dL (12.0-18.0); pH ABG 7.295 (7.350-7.450)
[2019-11-13 17:49] LABS: Device NASAL CANNULA; Modified Allen's Test Pass; PCO2 ABG 90.1 mmHg (35.0-45.0); Site Drawn RIGHT RADIAL
[2019-11-13 18:19] LABS: Alanine Aminotransferase 68 U/L (4-50); Albumin Level 3.8 g/dL (3.5-5.1); Alkaline Phosphatase 69 U/L (38-126); Aspartate Amino Transferase 21 U/L (17-59); Bilirubin,Total 1.1 mg/dL (0.2-1.3); Blood Urea Nitrogen 15 mg/dL (9-20); Calcium 8.5 mg/dL (8.4-10.2); Carbon Dioxide > 40 mmol/L (22-30); Chloride 86 mmol/L (98-107); Estimated CRCL calculation 122 ml/min; Estimated Glomerular Filt Rate > 60; Glucose 136 mg/dL (75-110); Potassium 4.1 mmol/L (3.4-5.0); Sodium 137 mmol/L (137-145)
--- NOTE | 2019-11-13 18:21 | PC.NURSE ---
Pt niece on the phone asking about him Britany Martinez. Pt stated it is okay to give her information.
[2019-11-13 18:30] LABS: Troponin I < 0.012 ng/mL (0.000-0.034)
--- NOTE | 2019-11-13 18:34 | PC.NURSE ---
per pt niece, pt was told at d/c from previous hospitalization he needs a bipap at night. He does not have a bipap at this time at home.
[2019-11-13 18:48] LABS: Thyroid Stimulating Hormone 0.383 uIU/mL (0.465-4.680)
--- NOTE | 2019-11-13 19:00 | PM.IMHP ---
H&P: HPI History of Present Illness Chief complaint: Shortness of breath. Narrative: Richard Simon is an unfortunate 54-year-old male smoker with chronic respiratory failure and COPD who presented to the emergency department earlier this evening via EMS from home for evaluation of shortness of breath. This will be his 3rd admission to the hospital since October 20 with similar presentations. His last visit was November 01 through November 07, 2019 and at that time he again was treated for acute on chronic respiratory failure with hypercarbia and hypoxia as well as COPD exacerbation. He was discharged on 1 to 2 liters of oxygen to be worn while awake, and with orders for BiPAP with settings 20/10 with an FiO2 of 30% and a rate of 18 while sleeping. He was evaluated by Dr. Marilin Shine, pulmonology, who felt that a trilogy unit would probably be in his best interest but the patient tells me that his insurance denied that. Unfortunately, they have not yet delivered his BiPAP nor has he been able to get his prescriptions for his inhalers for unclear reasons. For the last 2 days he notes increasing dyspnea on lesser and lesser exertion as well as hypoxia with a report SpO2 of 60% despite him turn his oxygen up to 6 liters. He also notes that headache and nonproductive cough. He has not had fever, chills, sweats, chest pain, pleuritic pain, nausea, vomiting, sweats, or lower extremity edema. The patient continues to smoke, but says he is down to 2 cigarettes a day. Review of Systems Review of Systems: All systems reviewed & are unremarkable except as noted in HPI and below PMFSH Past Medical History Medical History (Updated 11/13/19 @ 21:07 by Suzette Merida PA-C) Arthritis Chronic respiratory failure with hypoxia and hypercapnia He uses 1 liter at rest and 2 liters with exertion. COPD (chronic obstructive pulmonary disease) Pulmonary hypertension Echocardiogram on 11/01/2019: 1. Left ventricular chamber dimension is normal. 2. Left ventricular systolic function is normal, estimated at 55-60%. 3. The left ventricular diastolic function is normal. 4. E/e' 5 is not elevated. 5. Global longitudinal strain is normal at -20.3%. 6. There is mild aortic valve sclerosis. 7. There is mild tricuspid valve regurgitation. 8. Mild pulmonary hypertension, estimated pulmonary arterial systolic pressure is 40 mmHg. Scoliosis Tobacco dependence Surgical History Surgical History (Updated 11/01/19 @ 22:10 by Suzette Merida PA-C) History of surgery on right wrist Social History Social History Social History: He is currently living in [place]. He is originally from [place], [place] and intends to move back there soon. 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 He has smoked up to 2 packs of cigarettes per day for the last 40 years but seems motivated to quit smoking. His sister apparently has severe end-stage COPD, and he does not want to get to that point. He does not use E cigarettes. He does smoke marijuana most days. He denies alcohol abuse. He wishes to be a full code. Smoking packs per day: 2 Smoking cigarettes per day: 40.0 Years smoked: 40 Smoking pack-years: 80.00 Smoking status: Current every day smoker Tobacco type: cigarettes Additional smoking assessment comments: recently cut back to 2 cigarettes daily Alcohol intake: former Substance use: current Substance use type: marijuana Gender identity (if verbalized by the patient): Male Spiritual care concerns: No Agree to blood products: Yes Meds Home Medications and Allergies Home Medications Medication Instructions Recorded Confirmed Type acetaminophen [Mapap 650 mg PO Q4H PRN #0 tablet 11/07/19 Rx (acetaminophen)] budesonide-formoterol [Symbicort] 2 puff INHALATION Q12HRT #1 inh 11/07/19 Rx ipratropium-albuterol 3 ml INHALATION QID PRN #180 ml 11/07/19 Rx nicotine [Nicode
--- NOTE | 2019-11-13 21:43 | ADMGEN ---
This patient, Richard Simon, was admitted to IMU Room 206-01. Patient/family oriented to hospital policies and general routines including ID bracelet, bed and alarms, visiting hours, pain management, procedures, bathroom and other care routines, personal items, smoking policy, room service/diet, and visiting hours. Valuables list has been completed. Information on how to activate the Rapid Response Team has been discussed. Patient/Family are encouraged to report perceived risks to care and to ask questions if they do not understand what they are told or what they should do.
[2019-11-13 22:37] LABS: Alveolar/Arterial O2 Gradient 94.6 mmHg; Base Excess ABG 11.8 mEq/l (+/-2.0); Carboxyhemoglobin 2.2 % THb (0-2.0); Fractional Inspired Oxygen 40 %; Methemoglobin ABG 0.3 %THb (0-1.5); Oxygen Content ABG 19.5 %vol (16.0-22.0); Oxygen Saturation ABG 94.4 % (95.0-100.0); Oxyhemoglobin 93.6 % THb (90.0-100.0); PO2 ABG 83.9 mmHg (80.0-100.0); Reduced Hemoglobin 3.9 %THb (0-5.0); Total Hemoglobin 14.8 g/dL (12.0-18.0)
[2019-11-13 22:41] LABS: pH ABG 7.284 (7.350-7.450)
[2019-11-13 22:42] LABS: Device NON-INVASIVE VENT; Modified Allen's Test Pass; Non-Invasive Expiratory Pressure 10 CMH2O; Non-Invasive Inspiratory Pressure 20 CMH2O; Non-Invasive Vent Rate 18 /MIN; PCO2 ABG 92.8 mmHg (35.0-45.0); Site Drawn RIGHT RADIAL
[2019-11-13] MEDS: ENOXAPARIN 40 MG/0.4 ML SYRINGE SUB-Q (23:33)
[2019-11-13] MEDS: methylPREDNISolone SOD SUCC 125 MG VIAL 60 MG IV PUSH (23:33)
[2019-11-14] VITALS (23 sets, daily range): BP systolic 117–144; BP diastolic 67–91; PULSE 80–123; RESP 18–27; TEMP 36.6–37.3; O2SAT 93–99
[2019-11-14] MEDS: ALBUTEROL SULFATE NEB 2.5 MG/0.5 ML INH 5 MG INHALATION ×6 (00:28→21:03)
[2019-11-14] MEDS: IPRATROPIUM BR 0.02% INH SOLN 0.5 MG/2.5 ML VIAL INHALATION ×6 (00:28→21:04)
[2019-11-14 05:14] LABS: Basophils Percent Auto 0.1 % (0.2-1.2); Hematocrit 44.6 % (42.0-52.0); Hemoglobin 13.5 g/dL (14.0-18.0); Immature Granulocyte Absolute 0.08 K/mm3 (0.00-0.031); Immature Granulocyte Percent A 0.7 % (0-0.5); Lymphocytes Absolute Auto 0.21 K/mm3 (0.9-3.2); Lymphocytes Percent Auto 1.9 % (18.3-44.2); Mean Corpuscular HGB Conc 30.3 g/dl (32-36); Mean Corpuscular Hemoglobin 30.5 pg (26-34); Mean Corpuscular Volume 100.7 fl (80-100); Monocytes Absolute Auto 0.1 K/mm3 (0.1-0.6); Monocytes Percent Auto 0.6 % (2.6-8.5); Neutrophils Absolute Auto 10.4 K/mm3 (1.3-6.7); Neutrophils Percent Auto 96.7 % (45.5-73.1); Platelet Count Result 227 k/mm3 (150-375); Red Blood Count 4.43 M/mm3 (4.6-6.20); Red Cell Distribution Width 13.9 % (11.5-14.5); White Blood Count 10.8 K/mm3 (4.5-10.0)
[2019-11-14 05:36] LABS: Blood Urea Nitrogen 17 mg/dL (9-20); Calcium 8.6 mg/dL (8.4-10.2); Carbon Dioxide > 40 mmol/L (22-30); Chloride 88 mmol/L (98-107); Estimated CRCL calculation 130 ml/min; Estimated Glomerular Filt Rate > 60; Glucose 147 mg/dL (75-110); Potassium 4.7 mmol/L (3.4-5.0); Sodium 135 mmol/L (137-145)
[2019-11-14 05:41] LABS: Base Excess ABG 11.3 mEq/l (+/-2.0); Carboxyhemoglobin 1.7 % THb (0-2.0); Fractional Inspired Oxygen 45 %; HCO3 ABG 40.8 mEq/l (22.0-26.0); Methemoglobin ABG 0.3 %THb (0-1.5); Oxygen Content ABG 19.4 %vol (16.0-22.0); Oxygen Saturation ABG 93.9 % (95.0-100.0); Oxyhemoglobin 93.8 % THb (90.0-100.0); PO2 ABG 76.6 mmHg (80.0-100.0); Reduced Hemoglobin 4.2 %THb (0-5.0); Total Hemoglobin 14.7 g/dL (12.0-18.0); pH ABG 7.339 (7.350-7.450)
[2019-11-14 05:43] LABS: Device NON-INVASIVE VENT; Modified Allen's Test Pass; PCO2 ABG 77.6 mmHg (35.0-45.0); Site Drawn LEFT RADIAL
[2019-11-14 05:44] LABS: Non-Invasive Expiratory Pressure 10 CMH2O; Non-Invasive Inspiratory Pressure 20 CMH2O; Non-Invasive Vent Rate 18 /MIN
[2019-11-14] MEDS: methylPREDNISolone SOD SUCC 125 MG VIAL 60 MG IV PUSH ×2 (06:01→20:13)
[2019-11-14 06:29] LABS: Free T4 Free Thyroxine 0.99 ng/mL (0.78-2.19)
[2019-11-14] MEDS: ASPIRIN 81 MG CHEWABLE TABLET PO (09:50)
[2019-11-14] MEDS: NICOTINE (*PBKC) 21 MG PATCH 1 PATCH TRANSDERM (09:51)
--- NOTE | 2019-11-14 12:09 | PM.IMPN ---
Progress Note: A&P Assessment and Plan (1) Acute on chronic respiratory failure with hypercapnia: Code(s): J96.22 - Acute and chronic respiratory failure with hypercapnia Status: Acute Assessment and Plan: Appears to be result of no Trilogy or BiPAP unit available at home as well as lack of use of inhalers. Care coordination already has made contact with [employer] for Trilogy unit with no denial or acceptance from insurance received at this point. Will continue BiPAP at night and with naps while here. PCO2 decreased to 77.6 on last ABG. Patient much more awake and alert. Continue nebulizer treatments and Symbicort. Currently on 4 L oxygen. Will start weaning IV steroids. Telemetry reviewed on 11/14/2019 with mild sinus tachycardia with heart rate in 110s. Will transfer to medical floor as stable. (2) Acute exacerbation of chronic obstructive pulmonary disease (COPD): Code(s): J44.1 - Chronic obstructive pulmonary disease with (acute) exacerbation Status: Acute Assessment and Plan: Appears to be result of not using inhalers after last discharge. Continue respiratory treatments as noted above. Anticipate eventual transition to tapering prednisone from IV steroids. (3) Tobacco dependence: Code(s): F17.200 - Nicotine dependence, unspecified, uncomplicated Status: Acute Assessment and Plan: Counseled on smoking cessation by admitting provider. Nicotine patch in place. (4) DVT prophylaxis: Code(s): Z29.9 - Encounter for prophylactic measures, unspecified Status: Acute Assessment and Plan: Lovenox. Time Spent With Patient Time with patient: 15 - 25 minutes Subjective Date/time seen: 11/14/19 12:09 Interval history: Date of Service: 11/14/2019. Admitted with acute on chronic respiratory failure, COPD exacerbation. Feels better today after being on BiPAP overnight. Shortness of breath still present but improved. No cough. No chest pain or pressure. No abdominal pain. No nausea or vomiting. Review of Systems Review of Systems: Narrative: Feeling better. Constitutional: Constitutional: Denies chills and Denies fever(s) ENT: Denies dysphagia Cardiovascular: Cardiovascular: Denies chest pain Respiratory: Respiratory: Denies cough and Reports dyspnea Gastrointestinal: Gastrointestinal: Denies abdominal pain, Denies nausea and Denies vomiting Genitourinary: Genitourinary: Reports no additional male genitourinary complaints Integumentary/Breasts: Skin/Breast: Denies rash Neurologic: Denies headache(s) Psychiatric: Psychiatric: Denies anxiety, Denies confusion and Denies depression Exam Narrative: Exam Narrative: Awake and alert. Const: General: no acute distress HENMT: Mouth: Yes moist mucous membranes Neck: Neck: no lymphadenopathy and supple Resp: Auscultation: no wheezes and diminished lung sounds Other: slightly coarse breath sounds Cardio: Rate: regular rate and tachycardic (Mild) GI: Inspection: non-distended GI Palp: Yes Soft to palpation and No Tenderness to palpation present (GI) Auscultation: normal bowel sounds Skin: General skin exam: no rashes or lesions noted Neuro: General: patient oriented x3 and moves all extremities Cognition (Neuro): normal cognition Speech: normal speech Extrem: General: no edema Psych: Mental Status: mental status grossly normal Speech and movement: Normal speech and movement present Objective Data Vital Signs Vital Signs: Vital Signs - 24 hr 11/13/19 17:18 11/13/19 17:52 11/13/19 19:00 Temperature 98.6 F Pulse Rate 126 H 125 H 115 H Respiratory Rate 25 H 33 H 25 H Blood Pressure 130/94 H 123/70 Pulse Oximetry 93 96 11/13/19 19:15 11/13/19 19:30 11/13/19 19:45 Temperature Pulse Rate 114 H 115 H 96 Respiratory Rate 25 H 19 18 Blood Pressure 118/58 L 109/73 96/62 L Pulse Oximetry 97 91 94 11/13/19 20:15 11/13/19 20:56 11/13/19 21:38 Temperature
[2019-11-14] MEDS: CYCLOBENZAPRINE HCL 5 MG TABLET PO ×2 (12:49→20:13)
--- NOTE | 2019-11-14 16:40 | PC.NURSE ---
This patient, Richard Simon, was received from IMU on 11/14/19 at 1640. . Personal belongings list checked and signed. Patient/family oriented to unit policies and routines
--- NOTE | 2019-11-14 17:58 | PC.NURSE ---
pt transfered to 311 at 1640 on 11/14/19. report given and medications sent.
[2019-11-14] MEDS: ACETAMINOPHEN 325 MG TABLET 650 MG PO (18:26)
[2019-11-14] MEDS: ENOXAPARIN 40 MG/0.4 ML SYRINGE SUB-Q (20:13)
[2019-11-15] VITALS (18 sets, daily range): BP systolic 123–142; BP diastolic 72–85; PULSE 55–114; RESP 18–20; TEMP 36.5–37.4; O2SAT 82–98
[2019-11-15] MEDS: IPRATROPIUM BR 0.02% INH SOLN 0.5 MG/2.5 ML VIAL INHALATION ×5 (03:58→19:55)
[2019-11-15] MEDS: ALBUTEROL SULFATE NEB 2.5 MG/0.5 ML INH 5 MG INHALATION ×5 (03:58→19:55)
[2019-11-15] MEDS: ACETAMINOPHEN 325 MG TABLET 650 MG PO ×4 (04:25→20:20)
[2019-11-15] MEDS: CYCLOBENZAPRINE HCL 5 MG TABLET PO ×3 (04:25→20:21)
[2019-11-15 04:29] LABS: Alveolar/Arterial O2 Gradient 99.3 mmHg; Base Excess ABG 12.8 mEq/l (+/-2.0); Fractional Inspired Oxygen 40 %; HCO3 ABG 42.4 mEq/l (22.0-26.0); Oxygen Content ABG 19.1 %vol (16.0-22.0); Oxygen Saturation ABG 96.3 % (95.0-100.0); PO2 FiO2 Ratio Arterial Blood 2.33 %; Total Hemoglobin 14.1 g/dL (12.0-18.0); pH ABG 7.338 (7.350-7.450)
[2019-11-15 04:31] LABS: PCO2 ABG 80.8 mmHg (35.0-45.0)
[2019-11-15 04:32] LABS: Device NON-INVASIVE VENT; Modified Allen's Test Pass; Site Drawn RIGHT RADIAL
[2019-11-15 04:33] LABS: Non-Invasive Expiratory Pressure 10 CMH2O; Non-Invasive Inspiratory Pressure 20 CMH2O; Non-Invasive Vent Rate 18 /MIN
[2019-11-15 06:22] LABS: Hematocrit 42.8 % (42.0-52.0); Hemoglobin 13.2 g/dL (14.0-18.0); Mean Corpuscular HGB Conc 30.8 g/dl (32-36); Mean Corpuscular Hemoglobin 30.8 pg (26-34); Mean Corpuscular Volume 99.8 fl (80-100); Mean Platelet Volume 10.7 fl (7.4-10.4); Platelet Count Result 239 k/mm3 (150-375); Red Blood Count 4.29 M/mm3 (4.6-6.20); Red Cell Distribution Width 13.8 % (11.5-14.5); White Blood Count 11.5 K/mm3 (4.5-10.0)
[2019-11-15 06:40] LABS: Blood Urea Nitrogen 17 mg/dL (9-20); Calcium 8.6 mg/dL (8.4-10.2); Carbon Dioxide 38 mmol/L (22-30); Chloride 90 mmol/L (98-107); Estimated CRCL calculation 102 ml/min; Estimated Glomerular Filt Rate > 60; Glucose 145 mg/dL (75-110); Magnesium 1.9 mg/dL (1.6-2.3); Potassium 4.2 mmol/L (3.4-5.0); Sodium 137 mmol/L (137-145)
[2019-11-15] MEDS: ASPIRIN 81 MG CHEWABLE TABLET PO (09:10)
[2019-11-15] MEDS: methylPREDNISolone SOD SUCC 125 MG VIAL 60 MG IV PUSH (09:10)
[2019-11-15] MEDS: NICOTINE (*PBKC) 21 MG PATCH 1 PATCH TRANSDERM (09:11)
--- NOTE | 2019-11-15 13:18 | PM.IMPN ---
Progress Note: A&P Assessment and Plan (1) Acute on chronic respiratory failure with hypercapnia: Code(s): J96.22 - Acute and chronic respiratory failure with hypercapnia Status: Acute Assessment and Plan: Appears to be result of no Trilogy or BiPAP unit available at home as well as lack of use of inhalers. Respiratory therapy has been working with [employer] for Trilogy unit with no denial or acceptance from insurance received at this point. Will continue BiPAP at night and with naps while here. PCO2 slightly higher at 80.8 today. Oxygen decreased to 2 L today. Continue nebulizer treatments and Symbicort. Will transition to oral prednisone in am. Will contact pulmonology to see if there is anything else that could be done to help with obtaining Trilogy unit or at least BiPAP. Hopeful discharge soon. (2) Acute exacerbation of chronic obstructive pulmonary disease (COPD): Code(s): J44.1 - Chronic obstructive pulmonary disease with (acute) exacerbation Status: Acute Assessment and Plan: Appears to be result of not using inhalers after last discharge. Continue respiratory treatments as noted above. Transition to tapering prednisone in am. (3) Tobacco dependence: Code(s): F17.200 - Nicotine dependence, unspecified, uncomplicated Status: Acute Assessment and Plan: Counseled on smoking cessation by admitting provider. Nicotine patch in place. (4) DVT prophylaxis: Code(s): Z29.9 - Encounter for prophylactic measures, unspecified Status: Acute Assessment and Plan: Lovenox. Time Spent With Patient Time with patient: 15 - 25 minutes Subjective Date/time seen: 11/15/19 13:18 Interval history: Date of Service: 11/15/2019. Admitted with acute on chronic respiratory failure, COPD exacerbation. Feeling better. No shortness of breath or cough. No chest pain. No abdominal pain. Complains of chronic back pain. Review of Systems Constitutional: Constitutional: Denies chills and Denies fever(s) ENT: Denies dysphagia Cardiovascular: Cardiovascular: Denies chest pain Respiratory: Respiratory: Denies cough and Denies dyspnea Gastrointestinal: Gastrointestinal: Denies abdominal pain, Denies dysphagia, Denies nausea and Denies vomiting Genitourinary: Genitourinary: Reports no additional male genitourinary complaints Musculoskeletal: Musculoskeletal: Reports back pain (chronic) Integumentary/Breasts: Skin/Breast: Denies rash Neurologic: Denies headache(s) Psychiatric: Psychiatric: Denies anxiety, Denies confusion and Denies depression Exam Narrative: Exam Narrative: Awake and alert. Const: General: no acute distress HENMT: Mouth: Yes moist mucous membranes Neck: Neck: no lymphadenopathy and supple Resp: Auscultation: no wheezes and diminished lung sounds Cardio: Rate: regular rate Rhythm: regular rhythm GI: Inspection: non-distended Auscultation: normal bowel sounds Skin: General skin exam: no rashes or lesions noted Neuro: General: No confusion Cognition (Neuro): normal cognition Speech: normal speech Extrem: General: no edema Psych: Mental Status: mental status grossly normal Speech and movement: Normal speech and movement present Objective Data Vital Signs Vital Signs: Vital Signs - 24 hr 11/14/19 13:35 11/14/19 15:43 11/14/19 17:31 Temperature 99.2 F Pulse Rate 98 98 110 H Respiratory Rate 20 20 20 Blood Pressure 138/91 H Pulse Oximetry 94 11/14/19 21:04 11/14/19 21:15 11/14/19 21:19 Temperature Pulse Rate 86 83 83 Respiratory Rate 20 22 H 22 H Blood Pressure Pulse Oximetry 98 11/14/19 21:59 11/15/19 03:58 11/15/19 04:09 Temperature 97.8 F Pulse Rate 110 H 80 88 Respiratory Rate 18 20 20 Blood Pressure 117/67 Pulse Oximetry 97 11/15/19 04:10 11/15/19 05:59 11/15/19 08:17 Temperature 99.3 F Pulse Rate 76 106 H 110 H Respiratory Rate 20 18 20 Blood Pressure 127/72 Pul
--- NOTE | 2019-11-15 15:39 | PCRCNOTE ---
CONTACTED [facility] ON 11-14 REGARDING TRILOGY AUTHORIZATION AND WAS TOLD BY [facility] THAT MEDICAID SAID THEY MAY NOT HEAR ANYTHING IN REGARDS TO APPROVAL FOR A FEW MORE DAYS.
[2019-11-15] MEDS: ENOXAPARIN 40 MG/0.4 ML SYRINGE SUB-Q (20:21)
[2019-11-16] VITALS (10 sets, daily range): BP systolic 114–134; BP diastolic 83–89; PULSE 98–118; RESP 16–22; TEMP 36.6–36.7; O2SAT 94–95
--- NOTE | 2019-11-16 03:04 | PCRCNOTE ---
Window of time for administration has passed. See next scheduled administration.
[2019-11-16] MEDS: IPRATROPIUM BR 0.02% INH SOLN 0.5 MG/2.5 ML VIAL INHALATION ×4 (03:06→15:17)
[2019-11-16] MEDS: ALBUTEROL SULFATE NEB 2.5 MG/0.5 ML INH 5 MG INHALATION ×4 (03:06→15:18)
[2019-11-16] MEDS: ACETAMINOPHEN 325 MG TABLET 650 MG PO ×3 (04:19→14:22)
[2019-11-16] MEDS: CYCLOBENZAPRINE HCL 5 MG TABLET PO ×2 (04:22→12:47)
[2019-11-16] MEDS: NICOTINE (*PBKC) 21 MG PATCH 1 PATCH TRANSDERM (08:27)
[2019-11-16] MEDS: predniSONE 10 MG TABLET 40 MG PO (08:27)
[2019-11-16] MEDS: ASPIRIN 81 MG CHEWABLE TABLET PO (08:27)
[2019-11-16 13:10] LABS: Alveolar/Arterial O2 Gradient 27.1 mmHg; Base Excess ABG 9.5 mEq/l (+/-2.0); Fractional Inspired Oxygen 24 %; HCO3 ABG 38.3 mEq/l (22.0-26.0); Oxygen Content ABG 18.3 %vol (16.0-22.0); Oxygen Saturation ABG 87.9 % (95.0-100.0); Oxyhemoglobin 90.3 % THb (90.0-100.0); PO2 ABG 58.6 mmHg (80.0-100.0); PO2 FiO2 Ratio Arterial Blood 2.44 %; Total Hemoglobin 14.4 g/dL (12.0-18.0); pH ABG 7.345 (7.350-7.450)
[2019-11-16 13:11] LABS: Device NASAL CANNULA; Modified Allen's Test Pass; PCO2 ABG 71.8 mmHg (35.0-45.0); Site Drawn LEFT RADIAL
--- NOTE | 2019-11-16 13:14 | PM.IMPN ---
Progress Note: A&P Assessment and Plan (1) Acute on chronic respiratory failure with hypercapnia: Code(s): J96.22 - Acute and chronic respiratory failure with hypercapnia Status: Acute Assessment and Plan: Appears to be result of no Trilogy or BiPAP unit available at home as well as lack of use of inhalers. Respiratory therapy has been working with [employer] for Trilogy unit with no denial or acceptance from insurance received at this point. Has been using BiPAP at night and with naps while here. Repeat ABG in today with pCO2 improved to 71. Patient on 2 L oxygen. He reports he is supposed to be using 1 L of oxygen with rest and 3 L with activity. As will be sometime prior to approval of Trilogy unit, will discharge home today with albuterol/Atrovent nebulizer treatments, Symbicort and tapering prednisone. Patient to be notified as soon as any information received about Trilogy unit. He will return if issues. (2) Acute exacerbation of chronic obstructive pulmonary disease (COPD): Code(s): J44.1 - Chronic obstructive pulmonary disease with (acute) exacerbation Status: Acute Assessment and Plan: Appears to be result of not using inhalers after last discharge. Continue respiratory treatments as noted above. Continue tapering prednisone. (3) Tobacco dependence: Code(s): F17.200 - Nicotine dependence, unspecified, uncomplicated Status: Acute Assessment and Plan: Counseled on smoking cessation by admitting provider. Patient states planning on quitting at this point. Nicotine patch in place. (4) DVT prophylaxis: Code(s): Z29.9 - Encounter for prophylactic measures, unspecified Status: Acute Assessment and Plan: Lovenox. Time Spent With Patient Time with patient: 25 - 35 minutes Subjective Date/time seen: 11/16/19 13:14 Interval history: Date of Service: 11/16/2019. Admitted with acute on chronic respiratory failure, COPD exacerbation. Continues to feel better. No shortness of breath or cough. No chest pain. No abdominal pain. Has chronic back pain. Review of Systems Review of Systems: Narrative: Feels ready to go home. Constitutional: Constitutional: Denies chills and Denies fever(s) ENT: Denies dysphagia and Denies headache(s) Cardiovascular: Cardiovascular: Denies chest pain Respiratory: Respiratory: Denies cough and Denies dyspnea Gastrointestinal: Gastrointestinal: Denies abdominal pain, Denies dysphagia, Denies nausea and Denies vomiting Genitourinary: Genitourinary: Reports no additional male genitourinary complaints Musculoskeletal: Musculoskeletal: Reports back pain (chronic) Integumentary/Breasts: Skin/Breast: Denies rash Neurologic: Denies headache(s) Psychiatric: Psychiatric: Denies anxiety, Denies confusion and Denies depression Exam Narrative: Exam Narrative: Awake and alert. Const: General: no acute distress HENMT: Mouth: Yes moist mucous membranes Neck: Neck: no lymphadenopathy and supple Resp: Auscultation: no wheezes and diminished lung sounds Cardio: Rate: regular rate Rhythm: regular rhythm GI: Inspection: non-distended Auscultation: normal bowel sounds Skin: General skin exam: no rashes or lesions noted Neuro: General: No confusion Cognition (Neuro): normal cognition Speech: normal speech Extrem: General: no edema Psych: Mental Status: mental status grossly normal Speech and movement: Normal speech and movement present Objective Data Vital Signs Vital Signs: Vital Signs - 24 hr 11/15/19 13:30 11/15/19 14:00 11/15/19 15:51 Temperature 97.7 F Pulse Rate 113 H 110 H Respiratory Rate 20 20 Blood Pressure 123/72 Pulse Oximetry 88 L 98 11/15/19 15:58 11/15/19 19:50 11/15/19 20:00 Temperature Pulse Rate 107 H 105 H 107 H Respiratory Rate 20 20 20 Blood Pressure Pulse Oximetry 11/15/19 22:00 11/16/19 03:08 11/16/19 03:32 Temperature 97.8 F Pulse Rate 55
--- NOTE | 2019-11-16 15:26 | PCRCNOTE ---
[facility] called today with update on Trilogy; still awaiting authorization for Medicaid.
--- NOTE | 2019-11-16 16:42 | PM.DS ---
DS: Diagnosis Admitting Diagnosis Admitting Diagnosis: Acute and chronic respiratory failure with hypercapnia Discharge Diagnosis (1) Acute on chronic respiratory failure with hypercapnia: Code(s): J96.22 - Acute and chronic respiratory failure with hypercapnia Status: Acute (2) Acute exacerbation of chronic obstructive pulmonary disease (COPD): Code(s): J44.1 - Chronic obstructive pulmonary disease with (acute) exacerbation Status: Acute (3) Tobacco dependence: Code(s): F17.200 - Nicotine dependence, unspecified, uncomplicated Status: Acute DS: Summary Hospital Course Hospital Course: Date of Service of Discharge: November 16, 2019. History of Present Illness: 54-year-old smoker with known COPD and chronic respiratory failure present to the emergency department via EMS due to shortness of breath. Patient was already previously admitted twice to our facility earlier this month for similar reasons. He had just been admitted from November 01, 2022 November 07, 2019 with recurrent acute on chronic respiratory failure with hypercarbia and hypoxia as well as COPD exacerbation. During his most recent stay, patient did have initiation of approval for Trilogy unit but has not yet received acceptance or denial from insurance and therefore has not received unit. He was also sent home with home oxygen, 1 L at rest and 3 L with exertion. In the 2 days prior to presentation he noticed increasing dyspnea on lesser and lesser exertion. He also noted hypoxia, headache and productive cough. No recent fever, chills or sweats. In the emergency room, he was noted to once again have acute on chronic respiratory failure with hypercarbia and hypoxia as well COPD exacerbation. As result, he was admitted for further evaluation and treatment. Course in Hospital: Initially, patient was placed in the intermediate care unit as he was on continuous BiPAP. By the following morning patient was able to come off BiPAP and was significantly improved. He was continued on nebulizer treatments as well as placed on IV steroids. Patient still required oxygen during the day initially at 4 L but able to wean back to 2 L prior to discharge. ABG improved with improving respiratory status. Within 2 days, patient was feeling back at baseline. Unfortunately, no information had been received from his insurance company regarding approval or denial of Trilogy unit. He was using BiPAP at night and with naps while here. Information was eventually received from our respiratory therapy department that information from his insurance company regarding the Trilogy unit may take quite some time. He was not seen by pulmonology during this visit but I was able speak with pulmonology regarding his treatment. With patient improved, decision was to allow him to discharge home with albuterol/ipratropium nebulizer treatments, Symbicort, tapering prednisone and albuterol HFA inhaler available as needed. Patient did express during this stay here a decreased his number of cigarettes prior to admission. Patient did have nicotine patch in place throughout his stay. Additionally, he states plans to completely cease smoking cessation after this discharge. With the patient stable, he was allowed to discharge home on November 16, 2019. Of note, he was able to transfer from IMU to the medical floor on the day after admission. He remained on the medical floor throughout the remainder of his stay. Status at Discharge Cognitive/behavioral status at discharge: Stable. Functional status at discharge: independent ambulation Overall status at discharge: patient is back to baseline Time Spent with Patient Time attestation: Total time spent providing and/or coordinating discharge services: 40 minutes. Time spent: Greater than 30 minutes Exam Narrative: Exam Narrative: Vital Signs Temp Pulse Resp BP Pulse Ox 98.
--- NOTE | 2019-11-20 16:33 | PCRCNOTE ---
UPDATED INFO IN REGARDS TO PT TRILOGY. [facility] RECEIVED APPROVAL YESTERDAY BUT WAS UNABLE TO GET AHOLD OF PT. I RECEIVED A CALL FROM [facility] AND PT WAS ADMITTED TO [facility] OVER THE WEEKEND. I CONTACTED DELMI AT [facility] AND SHE WILL HAVE THE TRILOGY UNIT DELIVERED TO HIM AT [facility] WHERE HE CAN WEAR IT AND TAKE IT HOME WITH HIM FROM THERE. HE PLANS ON COMING BACK OVER TO [place].
== END 2019-11-16 16:45 | disposition home or self-care (01) | DRG 140 ==
LOC: ANHED 18:59 → ANH2MED 20:01 → ANHIMU 20:08 → ANH3MEDSUR 11-14 16:30
PROVIDERS: Physician Assistant; Admitting Provider Hospitalist; Emergency Provider Emergency Medicine; PCP Internal Medicine; Visit Provider Hospitalist
DX: J44.1 Chronic obstructive pulmonary disease with (acute) exacerbation (principal); J96.22 Acute and chronic respiratory failure with hypercapnia; F17.210 Nicotine dependence, cigarettes, uncomplicated; M19.90 Unspecified osteoarthritis, unspecified site; M41.9 Scoliosis, unspecified
CPT/HCPCS: 36415; 36600; 71045; 80048; 80053; 82375; 82805; 83050; 83735; 84439; 84443; 84484; 85025; 85027; 93005; 94002; 94003; 94640; 96365; 96375; 99285; A9270; J0696; J1100; J1650; J2930; J7120; J7512

== ENCOUNTER 2020-07-21 12:56 | Outpatient (CLI) | payer OTHER, SELFPAY ==
[2020-07-21 13:00] VITALS: PULSE 61; O2SAT 84
[2020-07-21 13:05] VITALS: PULSE 64; O2SAT 86
[2020-07-21 13:10] VITALS: PULSE 67; O2SAT 87
[2020-07-21 13:15] VITALS: PULSE 70; O2SAT 90
[2020-07-21 13:20] VITALS: PULSE 90; O2SAT 87
[2020-07-21 13:25] VITALS: PULSE 88; O2SAT 90
[2020-07-21 14:08] LABS: Alveolar/Arterial O2 Gradient 27.4 mmHg; Base Excess ABG 5.4 mEq/l (+/-2.0); Fractional Inspired Oxygen 21 %; HCO3 ABG 32.5 mEq/l (22.0-26.0); Oxygen Content ABG 17.9 %vol (16.0-22.0); Oxyhemoglobin 83.7 % THb (90.0-100.0); PCO2 ABG 57.5 mmHg (35.0-45.0); PO2 ABG 53.5 mmHg (80.0-100.0); PO2 FiO2 Ratio Arterial Blood 2.55 %; Total Hemoglobin 15.2 g/dL (12.0-18.0)
[2020-07-21 14:11] LABS: Device ROOM AIR; Oxygen Saturation ABG 86.1 % (95.0-100.0); Site Drawn RIGHT BRACHIAL
--- NOTE | 2020-07-21 14:33 | HOMEO2EVAL ---
Home Oxygen Evaluation RC: Home Oxygen (O2) Evaluation Start: 07/21/20 14:23 Freq: Status: Active Protocol: RPE Activity Type Activity Date Activity User E-Sign Co-Sign Detail Recorded Client Recorded Date Recorded By Document 07/21/20 13:00 DJO [email or web address] 07/21/20 14:33 DJO Document 07/21/20 13:05 [email or web address] [email or web address] 07/21/20 14:33 DJO Document 07/21/20 13:10 [email or web address] [email or web address] 07/21/20 14:33 DJO Document 07/21/20 13:15 [email or web address] [email or web address] 07/21/20 14:33 DJO Document 07/21/20 13:20 [email or web address] [email or web address] 07/21/20 14:33 DJO Document 07/21/20 13:25 [email or web address] [email or web address] 07/21/20 14:33 DJO 07/21/20 07/21/20 07/21/20 13:00 13:05 13:10 Home O2 Evaluation Test Phase Resting Resting Resting Oxygen Delivery Room Air Nasal Cannula Nasal Cannula Oxygen Flow Rate (L/min) 1 2 Pulse Oximetry (90-100 %) 84 L 86 L 87 L Pulse Rate (60-100 beats/min) 61 64 67 Ambulation Distance (feet) Treatment Charges O2 Evaluation 07/21/20 07/21/20 07/21/20 13:15 13:20 13:25 Home O2 Evaluation Test Phase Resting Exercise Exercise Oxygen Delivery Nasal Cannula Nasal Cannula Nasal Cannula Oxygen Flow Rate (L/min) 3 3 4 Pulse Oximetry (90-100 %) 90 87 L 90 Pulse Rate (60-100 beats/min) 70 90 88 Ambulation Distance (feet) 700 Treatment Charges
--- NOTE | 2020-07-28 13:53 | P.PCNPFT_ITS ---
PFT Interpretation PFT Interpretation: DOS: 07/21/2020 REQUESTING: Arnulfo Melo APRN REASON FOR TESTING: COPD PULMONARY FUNCTION TESTS Results are not acceptable and reproducible according to ATS standards although the patient did show good effort and tested to the best of his ability. Spirometry: FEV1 is 23% predicted, extremely decreased. This is 0.79 L. FVC is moderately severely decreased 49%. FEV1% ratio is decreased consistent with severe airflow obstruction. There is a 21% increase in the FVC after bronchod ilator, 490 mL, which is statistically significant. Lung volumes: TLC severely increased 233% consistent with severe hyperinflation. RV severely increased 544%. This shows severe air trapping. RV/TLC is 80, extraordinarily elevated. Airway resistance increased 738%. Diffusion: DLCO is 42%, moderately reduced. Flow volume loop: Extreme coving of the expiratory limb. IMPRESSION: Extremely severe obstructive ventilatory impairment with severe hyperinflation, severe air trapping, severe increase in airway resistance and severe diffusion impairment. Good response to bronchodilator. This pattern is consistent with emphysema. Marilin Shine MD
== END 2020-07-21 12:57 | disposition home or self-care (01) ==
LOC: ANHPFT 12:57
PROVIDERS: Visit Provider Nurse Practitioner Family
DX: J44.9 Chronic obstructive pulmonary disease, unspecified (principal); J96.11 Chronic respiratory failure with hypoxia; J96.12 Chronic respiratory failure with hypercapnia
CPT/HCPCS: 36600; 82805; 94060; 94618; 94726; 94729

== ENCOUNTER 2021-07-21 14:05 | Outpatient (CLI) | payer OTHER, SELFPAY ==
--- NOTE | ~2021-07-21 | CT_ITS ---
EXAMINATION: CT lung screening EXAM DATE: 07/21/2021 14:45 INDICATION: Z87.891 - Personal history of nicotine dependence. Shortness of breath. TECHNIQUE: Spiral low dose CT of the chest without contrast. Axial, coronal and sagittal images were reviewed. The dose-length product (DLP) for this examination was 66.55 mGy-cm. The exposure was ta ilored according to patient size (auto mA exposure control), and iterative reconstruction (ASIR) was used as additional dose reduction technique. There is no prior study for comparison. FINDINGS: There is moderate emphysema and hyperinflation. Biapical opacities most likely scarring bu t for which L RADS category 3 will be selected. There is 4 mm right lower lobe nodule on image 84. Se veral other calcified right lower lobe nodules. Tracheobronchial tree is patent. There is no mediastinal, hilar or axillary lymphadenopathy. Ther e are no pleural or pericardial effusions. There is no pneumothorax. Heart normal in size. Ther e is mild coronary arterial calcification, arterial sclerosis. Upper abdomen is unremarkable. There is thoracic spondylosis without osteoblastic or osteolytic lesions identified. IMPRESSION: Lung-RADS category 3, probably benign (1-2% chance of malignancy); recommend followup non contrast chest CT or LDCT in 6 months. Reviewed, dictated and finalized at location A. IMPRESSION: Lung-RADS category 3, probably benign (1-2% chance of malignancy); recommend followup noncontrast chest CT or LDCT in 6 months.
== END 2021-07-21 14:06 | disposition home or self-care (01) ==
PROVIDERS: PCP Internal Medicine; Visit Provider Nurse Practitioner Family
DX: Z12.2 Encounter for screening for malignant neoplasm of respiratory organs (principal); Z87.891 Personal history of nicotine dependence; R91.8 Other nonspecific abnormal finding of lung field
CPT/HCPCS: 71271

== ENCOUNTER 2021-11-06 15:53 | Outpatient (CLI) | payer OTHER, SELFPAY ==
--- NOTE | ~2021-11-06 | XR_ITS ---
XR chest 2V DATE: 11/06/2021 16:19 INDICATION: Cough. Smoker. History of COPD. TECHNIQUE: AP and lateral views COMPARISON: 07/21/2021 CT lung screening November 13, 2021 portable images FINDINGS: Bilateral hyperinflation with flattening the diaphragm and increased retrosternal airspace, consistent with COPD. No pulmonary infiltrate or consolidation, pleural effusion or pulmonary vascul ar congestion or pneumothorax. Normal heart size. No hilar or mediastinal enlargement. Diffuse osteopenia. Mild thoracic scoliosis. IMPRESSION: COPD Reviewed, dictated and finalized at location B. ION MAKER IMPRESSION: COPD
== END 2021-11-06 15:54 | disposition home or self-care (01) ==
LOC: ANHIMG 15:57
PROVIDERS: PCP Family Medicine; Visit Provider Nurse Practitioner
DX: R05.9 Cough, unspecified (principal); J44.9 Chronic obstructive pulmonary disease, unspecified
CPT/HCPCS: 71046

== ENCOUNTER 2022-02-01 09:32 | Outpatient (CLI) | payer OTHER, SELFPAY ==
--- NOTE | ~2022-02-01 | CT_ITS ---
EXAMINATION: CT diagnostic chest wo con DATE: 02/01/2022 10:05 INDICATION: Tobacco use, six-month follow-up for probably benign lung cancer screening CT TECHNIQUE: Computed tomography (CT) of the chest was performed without intravenous contrast. The dose -length product (DLP) was 153.48 mGy-cm. Automated exposure control and iterative reconstruction tech [facility] were employed. COMPARISON: 07/21/2021 FINDINGS: There is moderate emphysema. Stable scarring is noted in the lung apices. There is a stable 4 mm nodule of the right lower lobe. No new pulmonary nodules are identified. The lungs are free of acute opacities. There is no pleural effusion or pneumothorax. No pathologically enlarged thoracic ly mph nodes are identified. The heart size is normal. There is mild thoracic spondylosis. IMPRESSION: 1. Lung-RADS category 2: Benign appearance or behavior. Continue annual screening with noncontrast lo w-dose chest CT in 12 months. Reviewed, dictated and finalized at location A. IMPRESSION: 1. Lung-RADS category 2: Benign appearance or behavior. Continue annual screeni ng with noncontrast low-dose chest CT in 12 months.
== END 2022-02-01 09:33 | disposition home or self-care (01) ==
LOC: ANHIMG 09:34
PROVIDERS: PCP Family Medicine; Visit Provider Nurse Practitioner Family
DX: R91.8 Other nonspecific abnormal finding of lung field (principal)
CPT/HCPCS: 71250